=== PATIENT | female | born 1945 | race Caucasian/White ===

== ENCOUNTER 2017-12-17 04:30 | Emergency (ER) | payer MEDICARE, BC ==
[2017-12-17 05:28] LABS: Basophils # (A) 0.1 k/uL (0-0.2); Basophils % (A) 1 %; Eosinophils # (A) 0.2 k/uL (0-0.7); Eosinophils % (A) 2 %; HCT 39.7 % (34.0-46.0); Lymphocytes # (A) 2.5 k/uL (1.0-4.8); Lymphocytes % (A) 27 %; MCH 28.4 pg (25.0-35.0); MCHC 32.8 g/dL (31.0-37.0); MCV 86.4 fL (80.0-100.0); Mean Platelet Volume 7.2; Monocytes # (A) 0.7 k/uL (0-1.0); Monocytes % (A) 7 %; Neutrophils # (A) 5.7 k/uL (1.3-7.7); Neutrophils % (A) 62 %; Platelet Count 364 k/uL (150-450); RBC 4.59 m/uL (3.80-5.40); RDW 13.9 % (11.5-15.5); WBC 9.2 k/uL (3.8-10.6)
[2017-12-17 05:32] LABS: Appearance,Urine Clear (Clear); Bilirubin,Urine Negative (Negative); Blood,Urine Negative (Negative); Color,Urine Light Yellow; Glucose,Urine (UA) Negative (Negative); Ketones,Urine Negative (Negative); Leukocyte Esterase,Urine Small (Negative); Mucus,Urine Rare /hpf; Nitrite,Urine Negative (Negative); PH, Urine 5.5 (5.0-8.0); Protein,Urine Negative (Negative); Specific Gravity,Urine 1.006 (1.001-1.035); Squamous Epithelial Cell,Urine <1 /hpf (0-4); Urobilinogen,Urine <2.0 mg/dL (<2.0); WBC,Urine 2 /hpf (0-5)
[2017-12-17 05:41] LABS: Albumin 4.6 g/dL (3.5-5.0); Calcium 10.6 mg/dL (8.4-10.2); Potassium 4.3 mmol/L (3.5-5.1); Total Bilirubin 0.3 mg/dL (0.2-1.3); Total Protein 6.9 g/dL (6.3-8.2)
--- NOTE | 2017-12-17 05:53 | ED ---
Abdominal Pain HPI - General Source: patient Mode of arrival: ambulatory Limitations: no limitations - History of Present Illness MD Complaint: abdominal pain Onset/Timin -: days(s) Location: LLQ, L flank Radiation: none Migration to: no migration Severity: moderate Quality: stabbing Consistency: constant Improves With: nothing Worsens With: nothing Associated Symptoms: nausea, other (Urinary frequency) <Edd Mills - Last Filed: 12/17/17 05:45> <Abdi Kennedy - Last Filed: 12/17/17 08:27> - General Chief Complaint: Abdominal Pain Stated Complaint: Abd pain Time Seen by Provider: 12/17/17 05:13 - Related Data Allergies Allergy/AdvReac Type Severity Reaction Status Date / Time No Known Allergies Allergy Verified 12/17/17 07:55 Review of Systems ROS Other: All systems not noted in ROS Statement are negative. Constitutional: Denies: fever, chills Respiratory: Denies: cough, dyspnea Cardiovascular: Denies: chest pain Gastrointestinal: Reports: abdominal pain, nausea. Denies: vomiting, diarrhea, constipation Genitourinary: Reports: frequency. Denies: dysuria, hematuria Musculoskeletal: Denies: back pain Skin: Denies: rash Neurological: Denies: headache <Edd Mills - Last Filed: 12/17/17 05:45> ROS Other: All systems not noted in ROS Statement are negative. <Abdi Kennedy - Last Filed: 12/17/17 08:27> ROS Statement: Those systems with pertinent positive or pertinent negative responses have been documented in the HPI. Past Medical History Past Medical History: Diabetes Mellitus, Hyperlipidemia, Hypertension, Thyroid Disorder History of Any Multi-Drug Resistant Organisms: None Reported Past Surgical History: Appendectomy, Bowel Resection Past Psychological History: No Psychological Hx Reported Smoking Status: Never smoker Past Alcohol Use History: None Reported Past Drug Use History: None Reported <Edd Mills - Last Filed: 12/17/17 05:45> General Exam Limitations: no limitations General appearance: alert, in no apparent distress Head exam: Present: atraumatic, normocephalic Eye exam: Present: normal appearance. Absent: scleral icterus, conjunctival injection Respiratory exam: Present: normal lung sounds bilaterally. Absent: respiratory distress, wheezes, rales, rhonchi, stridor Cardiovascular Exam: Present: regular rate, normal rhythm, normal heart sounds. Absent: systolic murmur, diastolic murmur, rubs, gallop GI/Abdominal exam: Present: soft, tenderness. Absent: distended, guarding, rebound, rigid Extremities exam: Present: normal inspection, normal capillary refill. Absent: pedal edema, calf tenderness Back exam: Present: normal inspection. Absent: CVA tenderness (R), CVA tenderness (L) Neurological exam: Present: alert Skin exam: Present: warm, dry, intact, normal color <Edd Mills - Last Filed: 12/17/17 05:45> General appearance: alert, in no apparent distress Head exam: Present: atraumatic, normocephalic, normal inspection Eye exam: Present: normal appearance, PERRL, EOMI. Absent: scleral icterus, conjunctival injection, periorbital swelling ENT exam: Present: normal exam, mucous membranes moist Neck exam: Present: normal inspection. Absent: tenderness, meningismus, lymphadenopathy Respiratory exam: Present: normal lung sounds bilaterally. Absent: respiratory distress, wheezes, rales, rhonchi, stridor Cardiovascular Exam: Present: regular rate, normal rhythm, normal heart sounds. Absent: systolic murmur, diastolic murmur, rubs, gallop, clicks GI/Abdominal exam: Present: soft, normal bowel sounds. Absent: distended, tenderness, guarding, rebound, rigid Extremities exam: Present: normal inspection, full ROM, normal capillary refill. Absent: tenderness, pedal edema, joint swelling, calf tenderness Back exam: Present: normal inspection Neurological exam: Present: alert, oriented X3, CN II-XII intact Psychiatric exam: Present: normal affect, normal mood Skin exam: Present: warm, dry, intact, normal color. Absent: rash <Abdi Kennedy - Last Filed: 12/17/17 08:27> Course <Edd Mills - Last Filed: 12/17/17 05:45> <Abdi Kennedy - Last Filed: 12/17/17 08:27> Vital Signs 12/17/17 12/17/17 04:39 06:46 Temperature 97.2 F L 98.4 F Pulse Rate 78 74 Respiratory 20 18 Rate Blood Pressure 198/100 166/71 O2 Sat by Pulse 100 99 Oximetry - Reevaluation(s) Reevaluation #1: 12/17/17 08:26 Patient has mild improvement in pain (Abdi Kennedy) Medical Decision Making - Lab Data Result diagrams: 12/17/17 05:03 12/17/17 05:03 <Edd Mills - Last Filed: 12/17/17 05:45> - Lab Data Result diagrams: 12/17/17 05:03 12/17/17 05:03 - Radiology Data Radiology results: report reviewed (CT abd pelvis negative for acute disease), image reviewed <Abdi Kennedy - Last Filed: 12/17/17 08:27> - Medical Decision Making 72 female the ER with flank pain, left-sided groin pain. Seen in urgent care for similar with no results, patient with negative urine negative lab CT is negative, patient will be discharged home (Abdi Kennedy) - Lab Data Lab Results 12/17/17 12/17/17 12/17/17 Range/Units 05:03 05:03 05:03 WBC 9.2 (3.8-10.6) k/uL RBC 4.59 (3.80-5.40) m/uL Hgb 13.0 (11.4-16.0) gm/dL Hct 39.7 (34.0-46.0) % MCV 86.4 (80.0-100.0) fL MCH 28.4 (25.0-35.0) pg MCHC 32.8 (31.0-37.0) g/dL RDW 13.9 (11.5-15.5) % Plt Count 364 (150-450) k/uL Neutrophils % 62 % Lymphocytes % 27 % Monocytes % 7 % Eosinophils % 2 % Basophils % 1 % Neutrophils # 5.7 (1.3-7.7) k/uL Lymphocytes # 2.5 (1.0-4.8) k/uL Monocytes # 0.7 (0-1.0) k/uL Eosinophils # 0.2 (0-0.7) k/uL Basophils # 0.1 (0-0.2) k/uL Sodium 143 (137-145) mmol/L Potassium 4.3 (3.5-5.1) mmol/L Chloride 103 (98-107) mmol/L Carbon Dioxide 23 (22-30) mmol/L Anion Gap 17 mmol/L BUN 20 H (7-17) mg/dL Creatinine 0.90 (0.52-1.04) mg/dL Est GFR (CKD-EPI)AfAm 74 (>60 ml/min/1.73 sqM) Est GFR (CKD-EPI)NonAf 64 (>60 ml/min/1.73 sqM) Glucose 95 (74-99) mg/dL Calcium 10.6 H (8.4-10.2) mg/dL Total Bilirubin 0.3 (0.2-1.3) mg/dL AST 27 (14-36) U/L ALT 35 (9-52) U/L Alkaline Phosphatase 76 (38-126) U/L Total Protein 6.9 (6.3-8.2) g/dL Albumin 4.6 (3.5-5.0) g/dL Amylase 64 (30-110) U/L Lipase 173 (23-300) U/L Urine Color Light Yellow Urine Appearance Clear (Clear) Urine pH 5.5 (5.0-8.0) Ur Specific [place] 1.006 (1.001-1.035) Urine Protein Negative (Negative) Urine Glucose (UA) Negative (Negative) Urine Ketones Negative (Negative) Urine Blood Negative (Negative) Urine Nitrite Negative (Negative) Urine Bilirubin Negative (Negative) Urine Urobilinogen <2.0 (<2.0) mg/dL Ur Leukocyte Esterase Small H (Negative) Urine WBC 2 (0-5) /hpf Ur Squamous Epith Cells <1 (0-4) /hpf Urine Mucus Rare H (None) /hpf Disposition <Edd Mills - Last Filed: 12/17/17 05:45> Is patient prescribed a controlled substance at d/c from ED?: No <Abdi Kennedy - Last Filed: 12/17/17 08:27> Clinical Impression: Abdominal pain Disposition: HOME SELF-CARE Condition: Good Instructions: Abdominal Pain (ED) Referrals: Nonstaff,Physician [Primary Care Provider] - 1-2 days
--- NOTE | 2017-12-17 06:22 | XR ---
EXAM: XR Abdomen, 1 View. CLINICAL HISTORY: Reason: abdominal pain TECHNIQUE: Frontal supine view of the abdomen/pelvis. COMPARISON: No relevant prior studies available. FINDINGS: Gastrointestinal tract: Nonobstructive bowel gas pattern. Bones: Unremarkable. No acute fracture. IMPRESSION: Normal abdomen and pelvis.
--- NOTE | 2017-12-17 07:57 | CT ---
EXAM: CT Abdomen and Pelvis Without Intravenous Contrast. CLINICAL HISTORY: Abdominal pain. TECHNIQUE: Axial computed tomography images of the abdomen and pelvis without intravenous contrast. CTDI is 21.3 mGy and DLP is 1035 mGy-cm. This CT exam was performed using one or more of the following dose reduction techniques: automated exposure control, adjustment of the mA and/or kV according to patient size, and/or use of iterative reconstruction technique. COMPARISON: No relevant prior studies available. FINDINGS: Lower thorax: No acute findings. ABDOMEN: Liver: Diffuse hepatic steatosis. Within the limitations of a nonenhanced exam, no focal hepatic lesions are identified. Gallbladder and bile ducts: Unremarkable. No calcified stones. No ductal dilation. Pancreas: Unremarkable. No ductal dilation. Spleen: Unremarkable. No splenomegaly. Adrenals: Unremarkable. No mass. Kidneys and ureters: Unremarkable. No obstructing stones. No hydronephrosis. PELVIS: Bladder: Unremarkable. No stones. Reproductive: Status post hysterectomy. No adnexal lesions.. Appendix: No findings to suggest acute appendicitis. ABDOMEN + PELVIS: Stomach and bowel: No bowel obstruction. No definite bowel wall thickening, though evaluation is limited by absence of enteric contrast. Post surgical changes seen near the rectosigmoid junction. No infiltrative changes regional to the anastomotic suture sites. Peritoneum: Unremarkable. No significant fluid collection. No free air. Lymph nodes: Unremarkable. No enlarged lymph nodes. Vasculature: Unremarkable. No aortic aneurysm. Bones: No acute fracture. IMPRESSION: No acute inflammatory or obstructive process seen within the abdomen or pelvis. Hepatic steatosis. Postsurgical changes and pelvis, as above.
[2017-12-17 08:31] VITALS: BP 131/60; PULSE 79; RESP 17
[2017-12-17 08:57] VITALS: TEMP 97.3
== END 2017-12-17 08:56 | disposition home or self-care (01) ==
LOC: EC 04:30
DX: R10.32 Left lower quadrant pain (principal); R11.0 Nausea; R35.0 Frequency of micturition
CPT/HCPCS: 36415; 74018; 74176; 80053; 81001; 82150; 83690; 85025; 99284

== ENCOUNTER → 2018-09-12 | Outpatient (CLI) | payer MEDICARE, BC ==
[2018-09-12 09:29] LABS: Basophils % (A) 1 %; Eosinophils # (A) 0.1 k/uL (0-0.7); Eosinophils % (A) 1 %; HCT 40.1 % (34.0-46.0); HGB 12.8 gm/dL (11.4-16.0); Lymphocytes # (A) 2.3 k/uL (1.0-4.8); Lymphocytes % (A) 30 %; MCH 28.9 pg (25.0-35.0); MCHC 31.8 g/dL (31.0-37.0); MCV 90.8 fL (80.0-100.0); Mean Platelet Volume 7.3; Monocytes # (A) 0.5 k/uL (0-1.0); Monocytes % (A) 6 %; Neutrophils # (A) 4.5 k/uL (1.3-7.7); Neutrophils % (A) 60 %; Platelet Count 271 k/uL (150-450); RBC 4.42 m/uL (3.80-5.40); RDW 13.4 % (11.5-15.5); WBC 7.5 k/uL (3.8-10.6)
[2018-09-12 17:00] LABS: Albumin 4.9 g/dL (3.80-4.90); Albumin/Globulin Ratio 2.45 (1.60-3.17); Anion Gap 8.4 mmol/L (4.00-12.00); Calcium 10.9 mg/dL (8.7-10.3); Carbon Dioxide 25.6 mmol/L (21.6-31.8); LDL Cholesterol,Calculated 58.6 mg/dL (0.0-131.0); Magnesium 2.2 mg/dL (1.5-2.4); Potassium 5.1 mmol/L (3.5-5.5); Total Bilirubin 0.4 mg/dL (0.3-1.2); Total Protein 6.9 g/dL (6.2-8.2); VLDL Calculation 27.4 mg/dL (5.00-40.00)
[2018-09-12 17:42] LABS: Hemoglobin A1C 7.9 % (4.0-6.0)
== END | disposition home or self-care (01) ==
LOC: LABWHC1 08:31
PROVIDERS: ATTEND Physician Assistant
DX: E78.5 Hyperlipidemia, unspecified (principal); E11.9 Type 2 diabetes mellitus without complications; E03.9 Hypothyroidism, unspecified; I10 Essential (primary) hypertension; E83.42 Hypomagnesemia
CPT/HCPCS: 36415; 80053; 80061; 82043; 82570; 83036; 83735; 84443; 85025

== ENCOUNTER → 2018-10-02 | Outpatient (CLI) | payer MEDICARE, BC ==
--- NOTE | 2018-10-02 09:45 | BD ---
EXAMINATION TYPE: Axial Bone Density DATE OF EXAM: 10/02/2018 COMPARISON: NONE CLINICAL HISTORY: 73 YR OLD FEMALE....ICD-10 CODE: M89.9 DISORDER OF BONE Height: 63.3 Weight: 193 FRAX RISK QUESTIONS: History of Fracture in Adulthood: YES Secondary Osteoporosis: YES 3. Menopause before 45: YES AT AGE 21 RISK FACTORS HISTORY OF: Hip Fracture (Right/Left): RT KNEE AT 14 YRS OLD, LOWER TIB FIB AT 25 YRS OLD History of Wrist Fracture: RT WRIST, > AGE 49 Postmenopausal woman: AT AGE 21 TOTAL HYST Take estrogen and/or progesterone medications: IN THE PAST ONLY FOR ABOUT 10 YRS Lost more than 2 inches in height since high school: YES MEDICATIONS: Prednisone or other steroids: PREDNISONE ON AND OFF Thyroid Medications: YES SYNTHROID, FOR ABOUT 10 YRS Additional Medications: BP MEDS, XANAX, REFLUX MEDS, STATIN FOR CHOLESTEROL, ORAL DIABETIC MEDS, VIT D, MULTIVITAMIN Additional History: HYPERTENSION, ANXIETY, DIABETIC EXAM MEASUREMENTS: Bone mineral densitometry was performed using the Global Velocity System. Bone mineral density as measured about the Lumbar spine is: ----- L1-L4(G/cm2): 1.141 T Score Values are as follows: ----- L1: -0.8 ----- L2: -1.4 ----- L3: 0.0 ----- L4: 0.6 ----- L1-L4: -0.3 Bone mineral density FIRST BONE DENSITY AT [facility] Bone mineral density about the R hip (g/cm2): 0.812 Bone mineral density about the L hip (g/cm2): 0.985 T Score values are as follows: -----R Neck: -2.0 -----L Neck: -1.1 -----R Total: -1.6 -----L Total: -0.2 Bone mineral density FIRST BONE DENSITY AT [facility] FRAX%s: THERE IS A 18.6% CHANCE FOR A MAJOR OSTEOPOROTIC FX AND A 4.2% FOR HIP .....PROBABILITY OF FX IN 10 YRS TIME IMPRESSION: Osteopenia (T Score between -2.5 and -1) at the femoral neck level in both hips. There is slightly increased risk of fracture and the patient may be considered for treatment. Re-Screen 2-5 years. NOTE: T-SCORE=SD OF THE YOUNG ADULT MEAN.
--- NOTE | 2018-10-07 10:09 | MM ---
Reason for exam: screening (asymptomatic). Last mammogram was performed 2 years and 3 months ago. History: Patient is postmenopausal and is nulliparous. Benign excisional biopsy of the left breast, 1983. Took estrogen for 10 years beginning at age 24. Physical Findings: A clinical breast exam by your physician is recommended on an annual basis and results should be correlated with mammographic findings. MG 3D Screening Mammo W/Cad Bilateral CC and MLO view(s) were taken. Prior study comparison: June 18, 2016, mammogram, performed at [facility]. March 02, 2014, mammogram, performed at [facility]. There are scattered fibroglandular densities. There are benign appearing round linear calcifications bilaterally, greater in the right breast. There is no discrete abnormality. ASSESSMENT: Benign, BI-RAD 2 RECOMMENDATION: Routine screening mammogram of both breasts in 1 year.
== END | disposition home or self-care (01) ==
LOC: RADMAMWWP 08:06
PROVIDERS: ATTEND Pediatrics
DX: Z12.31 Encounter for screening mammogram for malignant neoplasm of breast (principal); M85.851 Other specified disorders of bone density and structure, right thigh; M85.852 Other specified disorders of bone density and structure, left thigh
CPT/HCPCS: 77063; 77067; 77080

== ENCOUNTER → 2019-03-19 | Outpatient (CLI) | payer MEDICARE, BC ==
--- NOTE | 2019-03-19 10:43 | XR ---
EXAMINATION TYPE: XR lumbosacral spine min 4V DATE OF EXAM: 03/19/2019 CLINICAL HISTORY: Low back pain. TECHNIQUE: Frontal, lateral, and oblique images of the lumbar spine are obtained. COMPARISON: None FINDINGS: There are 5 lumbar type vertebral bodies identified. Vertebral body heights and alignment are preserved. Minimal retrolisthesis of L4 in relation to L3. Disc space narrowing and marginal oste ophytes are seen at L4-5 and L5-S1. Multilevel facet arthropathy. Pedicles and sacroiliac joints appe ar intact. IMPRESSION: Lumbar spondylosis most severe at L4-5 and L5-S1.
== END | disposition home or self-care (01) ==
LOC: RADXRMAIN 08:35
PROVIDERS: ATTEND Pediatrics
DX: M47.817 Spondylosis without myelopathy or radiculopathy, lumbosacral region (principal)
CPT/HCPCS: 72110

== ENCOUNTER → 2019-09-08 | Outpatient (CLI) | payer MEDICARE, BC ==
[2019-09-08 11:59] LABS: Basophils # (A) 0.1 k/uL (0-0.2); Basophils % (A) 1 %; Eosinophils # (A) 0.2 k/uL (0-0.7); Eosinophils % (A) 3 %; HCT 41.3 % (34.0-46.0); Lymphocytes # (A) 2.5 k/uL (1.0-4.8); Lymphocytes % (A) 35 %; MCHC 31.5 g/dL (31.0-37.0); MCV 92.2 fL (80.0-100.0); Mean Platelet Volume 7.7; Monocytes # (A) 0.4 k/uL (0-1.0); Monocytes % (A) 6 %; Neutrophils # (A) 3.7 k/uL (1.3-7.7); Neutrophils % (A) 52 %; Platelet Count 288 k/uL (150-450); RBC 4.48 m/uL (3.80-5.40); RDW 13.1 % (11.5-15.5); WBC 7.1 k/uL (3.8-10.6)
[2019-09-08 18:38] LABS: African American GFR (CKD) 56.9 (60.0-200.0); Albumin 4.9 g/dL (3.80-4.90); Albumin/Globulin Ratio 2.88 (1.60-3.17); Anion Gap 10.3 mmol/L (4.00-12.00); BUN/Creat Ratio 17.27 Ratio (12.00-20.00); Calcium 10.5 mg/dL (8.7-10.3); Carbon Dioxide 25.7 mmol/L (21.6-31.8); Chol/HDL Ratio 2.44; Globulin 1.7 g/dL (1.6-3.3); LDL Cholesterol,Calculated 44.6 mg/dL (0.0-131.0); Non-African American GFR(CKD) 49.1 (60.0-200.0); Potassium 4.6 mmol/L (3.5-5.5); Total Bilirubin 0.4 mg/dL (0.3-1.2); Total Protein 6.6 g/dL (6.2-8.2); VLDL Calculation 40.4 mg/dL (5.00-40.00)
[2019-09-08 19:21] LABS: Microalbumin Creatinine Ratio <30 mg/g Creat (0-30); Urine Creatinine 16.6 mg/dL
[2019-09-08 21:09] LABS: Hemoglobin A1C 8.9 % (4.0-6.0)
== END | disposition home or self-care (01) ==
LOC: LABWHC1 11:14
PROVIDERS: ATTEND Physician Assistant
DX: I10 Essential (primary) hypertension (principal); E03.9 Hypothyroidism, unspecified; E78.5 Hyperlipidemia, unspecified; E11.9 Type 2 diabetes mellitus without complications
CPT/HCPCS: 36415; 80053; 80061; 82043; 82570; 83036; 84439; 84443; 85025

== ENCOUNTER 2019-10-08 05:11 | Emergency (ER) | payer MEDICARE, BC ==
[2019-10-08 05:19] VITALS: TEMP 98.2
[2019-10-08 05:47] LABS: Basophils % (A) 0 %; Eosinophils # (A) 0.1 k/uL (0-0.7); Eosinophils % (A) 1 %; HCT 38.9 % (34.0-46.0); HGB 12.7 gm/dL (11.4-16.0); Lymphocytes # (A) 1.7 k/uL (1.0-4.8); Lymphocytes % (A) 11 %; MCH 29.4 pg (25.0-35.0); MCHC 32.7 g/dL (31.0-37.0); MCV 89.9 fL (80.0-100.0); Mean Platelet Volume 8.1; Monocytes # (A) 1.1 k/uL (0-1.0); Monocytes % (A) 7 %; Neutrophils # (A) 12.3 k/uL (1.3-7.7); Neutrophils % (A) 79 %; Platelet Count 296 k/uL (150-450); RBC 4.33 m/uL (3.80-5.40); RDW 12.9 % (11.5-15.5); WBC 15.6 k/uL (3.8-10.6)
--- NOTE | 2019-10-08 05:51 | XR ---
EXAMINATION TYPE: XR chest 2V DATE OF EXAM: 10/08/2019 COMPARISON: NONE HISTORY: Chest pain TECHNIQUE: FINDINGS: Heart is normal. Lungs are clear of infiltrate. There are no hilar masses. There is no pleu ral effusion. Bony thorax is intact. IMPRESSION: No active cardiopulmonary disease. Normal heart.
[2019-10-08 05:58] LABS: Albumin 4.3 g/dL (3.5-5.0); Calcium 10.1 mg/dL (8.4-10.2); Potassium 4.5 mmol/L (3.5-5.1); Total Bilirubin 0.4 mg/dL (0.2-1.3)
[2019-10-08 06:03] LABS: D-Dimer 0.35 mg/L FEU (<0.60); INR 0.9 (<1.2); Partial Thromboplastin Time 24.5 sec (22.0-30.0); Prothrombin Time 9.8 sec (9.0-12.0)
[2019-10-08] MEDS ORDERED: KETOROLAC 30 MG/ML 1 ML VIAL IVP STA (06:48)
--- NOTE | 2019-10-08 06:48 | ED ---
General Adult HPI - General Chief complaint: Shortness of Breath Stated complaint: Side pain when breathing Time Seen by Provider: 10/08/19 05:23 Source: patient Mode of arrival: ambulatory Limitations: no limitations - History of Present Illness Initial comments: Rosey is a pleasant 74-year-old female presents the emergency department today for evaluation of sharp pain in the right side of her chest. Patient reports that last week she began feeling Of Unwell Having Some Pain in Her Right Ear and Tender Lymphadenopathy on the Side of Her Neck. Patient May Not See Her Primary Care Physician for 3:00 Today However She's Also Developed a Mild Nonproductive Cough over the past 2 Days Has a Sharp Pain in Her Right Chest. Pain Is Worse with Deep Inspiration or Coughing. Pain Somewhat Reproducible with Palpation. Pain Is Not Associated with Any Shortness Breath, Palpitations or Lightheadedness. She Has No History of Pulmonary Disease, DVT or PE. - Related Data Home Medications Medication Instructions Recorded Confirmed Biotin 5 mg PO DAILY 12/17/17 12/17/17 Cholecalciferol [Vitamin D3] 2,000 unit PO DAILY 12/17/17 12/17/17 Cyanocobalamin (Vitamin B-12) 1,000 mcg PO DAILY 12/17/17 12/17/17 [Vitamin B-12] Esomeprazole Magnesium 40 mg PO DAILY 12/17/17 12/17/17 Ezetimibe [Zetia] 10 mg PO DAILY 12/17/17 12/17/17 Garlic 2 tab PO DAILY 12/17/17 12/17/17 Glimepiride [Amaryl] 4 mg PO [id number]-[id number] 12/17/17 12/17/17 Levothyroxine Sodium 100 mcg PO DAILY 12/17/17 12/17/17 Lisinopril [Zestril] 20 mg PO HS 12/17/17 12/17/17 Magnesium(Unknown) 1 tab PO DAILY 12/17/17 12/17/17 Meloxicam [Mobic] 15 mg PO HS 12/17/17 12/17/17 Multivitamins, Thera [Multivitamin 1 tab PO DAILY 12/17/17 12/17/17 (formulary)] Rosuvastatin Calcium [Crestor] 20 mg PO DAILY 12/17/17 12/17/17 Vitamin E (Dl,Tocopheryl Acet) 400 unit PO DAILY 12/17/17 12/17/17 [Vitamin E] Vits A,C,E/Lutein/Minerals 1 tab PO DAILY 12/17/17 12/17/17 [Ocuvite with Lutein Tablet] amLODIPine [Norvasc] 5 mg PO HS 12/17/17 12/17/17 metFORMIN HCL [Glucophage] 1,000 mg PO BID 12/17/17 12/17/17 traMADol HCL [Ultram] 50 mg PO Q8H PRN 12/17/17 12/17/17 Previous Rx's Medication Instructions Recorded Amoxicillin 500 mg PO BID 10 Days #20 capsule 10/08/19 Allergies Allergy/AdvReac Type Severity Reaction Status Date / Time ragweed pollen Allergy Mild Unknown Verified 10/08/19 05:20 Review of Systems ROS Statement: Those systems with pertinent positive or pertinent negative responses have been documented in the HPI. ROS Other: All systems not noted in ROS Statement are negative. Past Medical History Past Medical History: Diabetes Mellitus, Hyperlipidemia, Hypertension, Thyroid Disorder History of Any Multi-Drug Resistant Organisms: None Reported Past Surgical History: Appendectomy, Bowel Resection Additional Past Surgical History / Comment(s): bowel tumor removed. Past Psychological History: No Psychological Hx Reported Smoking Status: Never smoker Past Alcohol Use History: None Reported Past Drug Use History: None Reported General Exam - General Exam Comments Initial Comments: Physical Exam GENERAL: Patient is well-developed and well-nourished. Patient is nontoxic and well- hydrated and is in no distress. HENT: Normocephalic, Atraumatic. Right-sided otitis media EYES: PERRL, EOMI PULMONARY: Unlabored respirations. No audible rales rhonchi or wheezing was noted. CARDIOVASCULAR: There is a regular rate and rhythm without any murmurs gallops or rubs. ABDOMEN: Soft and nontender with normal bowel sounds. SKIN: Skin is clear with no lesions or rashes and otherwise unremarkable. : Deferred NEUROLOGIC: Patient is alert and oriented x3. Moving all extremities spontaneously MUSCULOSKELETAL: Normal extremities with adequate strength and full range of motion. No lower extremity swelling or edema. No calf tenderness. PSYCHIATRIC: Normal psychiatric evaluation. Limitations: no limitations Course Vital Signs 10/08/19 05:14 Temperature 98.2 F Pulse Rate 107 H Respiratory 20 Rate Blood Pressure 150/77 O2 Sat by Pulse 96 Oximetry EKG Findings - EKG Comments: EKG Findings:: EKG was obtained due to complaint of right-sided chest pain, EKG was obtained at 5:30 AM, rate is 95 rhythm is sinus there is normal axis, normal intervals, MD 1:30, QRS 90, QTc is [address] elevations noted have T-wave inversions in V2-V5 Medical Decision Making - Medical Decision Making The patient was seen and evaluated history was obtained from patient History and physical exam are concerning for right-sided otitis media, patient likely has a viral syndrome, she has reproducible right-sided chest pain which I believe is likely pleuritic in nature Labs chest x-ray and EKG were obtained, patient's mildly leukocytosis, and troponin and d-dimer are both negative Chest x-ray unremarkable Results were discussed patient was advised that I suspect she has a pleuritic like chest pain as well as otitis media. We'll treat with oral antibiotics, anti-inflammatory. Patient with follow-up with her primary care physician at 3 PM today as scheduled. - Lab Data Result diagrams: 10/08/19 05:37 10/08/19 05:37 Lab Results 10/08/19 10/08/19 10/08/19 Range/Units 05:37 05:37 05:37 WBC 15.6 H (3.8-10.6) k/uL RBC 4.33 (3.80-5.40) m/uL Hgb 12.7 (11.4-16.0) gm/dL Hct 38.9 (34.0-46.0) % MCV 89.9 (80.0-100.0) fL MCH 29.4 (25.0-35.0) pg MCHC 32.7 (31.0-37.0) g/dL RDW 12.9 (11.5-15.5) % Plt Count 296 (150-450) k/uL Neutrophils % 79 % Lymphocytes % 11 % Monocytes % 7 % Eosinophils % 1 % Basophils % 0 % Neutrophils # 12.3 H (1.3-7.7) k/uL Lymphocytes # 1.7 (1.0-4.8) k/uL Monocytes # 1.1 H (0-1.0) k/uL Eosinophils # 0.1 (0-0.7) k/uL Basophils # 0.0 (0-0.2) k/uL PT 9.8 (9.0-12.0) sec INR 0.9 (<1.2) APTT 24.5 (22.0-30.0) sec D-Dimer 0.35 (<0.60) mg/L FEU Sodium 135 L (137-145) mmol/L Potassium 4.5 (3.5-5.1) mmol/L Chloride 106 (98-107) mmol/L Carbon Dioxide 17 L (22-30) mmol/L Anion Gap 12 mmol/L BUN 22 H (7-17) mg/dL Creatinine 1.14 H (0.52-1.04) mg/dL Est GFR (CKD-EPI)AfAm 55 (>60 ml/min/1.73 sqM) Est GFR (CKD-EPI)NonAf 47 (>60 ml/min/1.73 sqM) Glucose 217 H (74-99) mg/dL Calcium 10.1 (8.4-10.2) mg/dL Magnesium 2.0 (1.6-2.3) mg/dL Total Bilirubin 0.4 (0.2-1.3) mg/dL AST 27 (14-36) U/L ALT 25 (4-34) U/L Alkaline Phosphatase 88 (38-126) U/L Troponin I (0.000-0.034) ng/mL NT-Pro-B Natriuret Pep pg/mL Total Protein 7.0 (6.3-8.2) g/dL Albumin 4.3 (3.5-5.0) g/dL 10/08/19 10/08/19 Range/Units 05:37 05:37 WBC (3.8-10.6) k/uL RBC (3.80-5.40) m/uL Hgb (11.4-16.0) gm/dL Hct (34.0-46.0) % MCV (80.0-100.0) fL MCH (25.0-35.0) pg MCHC (31.0-37.0) g/dL RDW (11.5-15.5) % Plt Count (150-450) k/uL Neutrophils % % Lymphocytes % % Monocytes % % Eosinophils % % Basophils % % Neutrophils # (1.3-7.7) k/uL Lymphocytes # (1.0-4.8) k/uL Monocytes # (0-1.0) k/uL Eosinophils # (0-0.7) k/uL Basophils # (0-0.2) k/uL PT (9.0-12.0) sec INR (<1.2) APTT (22.0-30.0) sec D-Dimer (<0.60) mg/L FEU Sodium (137-145) mmol/L Potassium (3.5-5.1) mmol/L Chloride (98-107) mmol/L Carbon Dioxide (22-30) mmol/L Anion Gap mmol/L BUN (7-17) mg/dL Creatinine (0.52-1.04) mg/dL Est GFR (CKD-EPI)AfAm (>60 ml/min/1.73 sqM) Est GFR (CKD-EPI)NonAf (>60 ml/min/1.73 sqM) Glucose (74-99) mg/dL Calcium (8.4-10.2) mg/dL Magnesium (1.6-2.3) mg/dL Total Bilirubin (0.2-1.3) mg/dL AST (14-36) U/L ALT (4-34) U/L Alkaline Phosphatase (38-126) U/L Troponin I <0.012 (0.000-0.034) ng/mL NT-Pro-B Natriuret Pep 57 pg/mL Total Protein (6.3-8.2) g/dL Albumin (3.5-5.0) g/dL Disposition Clinical Impression: Viral syndrome, Right otitis media, Pleuritic chest pain Disposition: HOME SELF-CARE Condition: Stable Additional Instructions: You have an ear infection, take Amoxicillin 500mg orally 2x daily for 10 days Follow-up with her primary care physician later today as scheduled Return to the ER if he have any worsening pain in her chest, shortness of breath, fever or any new or concerning symptoms Prescriptions: Amoxicillin 500 mg PO BID 10 Days #20 capsule Is patient prescribed a controlled substance at d/c from ED?: No Referrals: Bulmaro Rose MD [Primary Care Provider] - 1-2 days
[2019-10-08 07:16] VITALS: BP 135/69; PULSE 87; RESP 18
== END 2019-10-08 08:01 | disposition home or self-care (01) ==
LOC: EC 05:11
DX: B34.9 Viral infection, unspecified (principal); H66.91 Otitis media, unspecified, right ear; R07.81 Pleurodynia; D72.829 Elevated white blood cell count, unspecified; E11.9 Type 2 diabetes mellitus without complications; E78.5 Hyperlipidemia, unspecified; I10 Essential (primary) hypertension; E07.9 Disorder of thyroid, unspecified; Z91.048 Other nonmedicinal substance allergy status; Z79.1 Long term (current) use of non-steroidal anti-inflammatories (NSAID); Z79.84 Long term (current) use of oral hypoglycemic drugs; Z79.890 Hormone replacement therapy; Z79.899 Other long term (current) drug therapy
CPT/HCPCS: 36415; 93005; 85379; 83880; 80053; 83735; 84484; 85025; 85610; 85730; 71046; 99285; 96374; J1885

== ENCOUNTER → 2019-10-08 | Outpatient (CLI) | payer MEDICARE, BC ==
--- NOTE | 2019-10-09 11:19 | MM ---
Reason for exam: screening (asymptomatic). Last mammogram was performed 1 year ago. History: Patient is postmenopausal and is nulliparous. Family history of breast cancer in cousin at age 86. Benign excisional biopsy of the left breast, 1983. Took estrogen for 10 years beginning at age 24. Physical Findings: A clinical breast exam by your physician is recommended on an annual basis and results should be correlated with mammographic findings. MG 3D Screening Mammo W/Cad Bilateral CC and MLO view(s) were taken. Prior study comparison: October 02, 2018, bilateral MG 3d screening mammo w/cad. June 18, 2016, mammogram, performed at [facility]. There are scattered fibroglandular densities. Benign appearing bilateral calcifications. No suspicious abnormality. No significant changes when compared with prior studies. ASSESSMENT: Benign, BI-RAD 2 RECOMMENDATION: Routine screening mammogram of both breasts in 1 year.
== END | disposition home or self-care (01) ==
LOC: RADMAMWWP 12:33
PROVIDERS: ATTEND Pediatrics
DX: Z12.31 Encounter for screening mammogram for malignant neoplasm of breast (principal)
CPT/HCPCS: 77063; 77067

== ENCOUNTER → 2019-10-17 | Outpatient (CLI) | payer MEDICARE, BC ==
--- NOTE | 2019-10-17 09:18 | XR ---
EXAMINATION TYPE: XR chest 2V DATE OF EXAM: 10/17/2019 COMPARISON: 10/08/2019 HISTORY: Cough and congestion TECHNIQUE: Frontal and lateral views of the chest are obtained. FINDINGS: There is a new right suprahilar masslike consolidation. No additional new focal consolidat ion seen. No pneumothorax or pleural effusion. Chronic interstitial prominence. Stable mildly enlarge d cardiac mediastinal silhouette. Mild multilevel degenerative change of the spine. IMPRESSION: New right superhilar masslike consolidation. Given this was not present on the recent ex am of 10/08/2019, unifocal pneumonia is of primary consideration.
== END | disposition home or self-care (01) ==
LOC: RADXRMAIN 08:36
PROVIDERS: ATTEND Physician Assistant
DX: R05 Cough (principal)
CPT/HCPCS: 71046

== ENCOUNTER → 2020-10-14 | Outpatient (CLI) | payer MEDICARE, BC ==
--- NOTE | 2020-10-14 14:04 | PE ---
EXAMINATION TYPE: PET CT fusion skull to thigh DATE OF EXAM: 10/14/2020 COMPARISON: Outside CT chest August 31, 2020. CT abdomen December 17, 2017. HISTORY: Solitary pulmonary nodule, abnormal CT. TECHNIQUE: Following the intravenous administration of 9.88 mCi of F-18 FDG, whole body images are p erformed from the skull base to the midthigh. Images are reviewed on the computer in the coronal, ax ial, and sagittal planes. Reconstructed rotating images are created on independent workstation and r eviewed on the computer. A localization and attenuation correction CT is performed in conjunction w ith the PET scan. Blood glucose level equals 160. SCAN: Initial Scan FINDINGS: SKULL BASE AND NECK: No areas of abnormal hypermetabolic uptake. CHEST, MEDIASTINUM, AND HILAR REGION: Calcifications in the right hilar region redemonstrated. There is focal masslike consolidation with bronchiectasis right infrahilar region near axial image 85. Ther e is less prominent peripheral extension posteriorly on current study. No hypermetabolic uptake is id entified at this level. No areas of abnormal hypermetabolic uptake throughout the thorax. ABDOMEN AND PELVIS: No suspicious hypermetabolic uptake. Nonspecific bowel uptake. Normal excretion. OSSEOUS STRUCTURES: No suspicious hypermetabolic uptake.1 OTHER CT: Liver is diffusely low dense consistent with diffuse fatty infiltration. Surgical changes s igmoid rectal colon on axial image 199 is present. Uterus surgically absent. IMPRESSION: No suspicious hypermetabolic uptake to suggest neoplasm. Suspect granulomatous disease ce ntered right hilar region causing chronic inflammation and/or scarring with postobstructive atelectat ic change. Consider CT follow-up in 6-12 months time to document stability.
== END | disposition home or self-care (01) ==
LOC: RADPETMAIN 11:10
PROVIDERS: ATTEND Internal Medicine Critical Care Medicine
DX: R91.8 Other nonspecific abnormal finding of lung field (principal)
CPT/HCPCS: 78815; A9552

== ENCOUNTER → 2021-06-09 | Outpatient (CLI) | payer MEDICARE, BC ==
--- NOTE | 2021-06-09 08:57 | XR ---
EXAMINATION TYPE: XR abdomen 2V DATE OF EXAM: 06/09/2021 COMPARISON: 12/17/2017 HISTORY: Hypercalcemia TECHNIQUE: One view abdominal series FINDINGS: The osseous structures are intact. The bowel gas pattern is nonspecific. Lung bases are clear. Hype rtrophic and degenerative changes spine. Calcifications in the upper abdomen likely relate to granulo ma. Arthropathy of the hips. Degenerative change of the spine. IMPRESSION: 1. Nonspecific abdomen. No diagnostic evidence of obstruction.
--- NOTE | 2021-06-09 15:14 | BD ---
EXAMINATION TYPE: Axial Bone Density DATE OF EXAM: 06/09/2021 COMPARISON: 10.02.2018 CLINICAL HISTORY: 76 YR OLD FEMALE.....ICD-10 CODE: E83.52 HYPERCALCEMIA Height: 64 Weight: 166 FRAX RISK QUESTIONS: History of Fracture in Adulthood: YES Secondary Osteoporosis: YES 1. Type 1 Diabetes: YES 3. Menopause before 45: YES RISK FACTORS HISTORY OF: HX OF FXS YOUNG ADULT History of Wrist Fracture: RT > 50 YRS OLD Postmenopausal woman: TOTAL HYST AT 21 YRS OLD Take estrogen and/or progesterone medications: IN PAST FOR ABOUT 10 YRS, NONE NOW Lost more than 2 inches in height since high school: YES Hyperparathyroidism: NO Adrenal Insufficiency: NO MEDICATIONS: Prednisone or other steroids: YES..ON AND OFF Thyroid Medications: YES, SYNTHROID FOR ABOUT 15 YRS Additional Medications: BP MEDS, XANAX, REFLUX MEDS, STATIN FOR CHOLESTEROL , DIABETIC MEDS, INSULIN, RENAL TROUBLE, GABAPENTIN, TRAMADOL Additional History: HYPERTENSION, ANXIETY, REFLUX, DIABETIC, RENAL , FIBROMYALGIA, OSTEOARTHRITIS, EXAM MEASUREMENTS: Bone mineral densitometry was performed using the [employer] Interactive System. Bone mineral density as measured about the Lumbar spine is: ----- L1-L4(G/cm2): 1.083 T Score Values are as follows: ----- L1: -1.2 ----- L2: -1.4 ----- L3: -0.3 ----- L4: -0.6 ----- L1-L4: -0.8 Bone mineral density has: Decreased -5.0% since study of: 10.02.2018 Bone mineral density about the R hip (g/cm2): 0.745 Bone mineral density about the L hip (g/cm2): 0.937 T Score values are as follows: -----R Neck: -2.4 -----L Neck: -1.2 -----R Total: -2.1 -----L Total: -0.6 Bone mineral density has: Decreased -6.5% since study of: 10.02.2018 FRAX%s: THERE IS A 25.0% CHANCE FOR A MAJOR OSTEOPOROTIC FX AND A 7.6% FOR HIP......PROBABILITY FO R FX IN 10 YRS TIME IMPRESSION: Osteopenia (T Score between -2.5 and -1). There is slightly increased risk of fracture and the patient may be considered for treatment. Re-Screen 2-5 years. NOTE: T-SCORE=SD OF THE YOUNG ADULT MEAN.
== END | disposition home or self-care (01) ==
LOC: RADBDWWP 08:03
PROVIDERS: ATTEND Pediatrics
DX: E83.52 Hypercalcemia (principal); M85.89 Other specified disorders of bone density and structure, multiple sites; Z78.0 Asymptomatic menopausal state; Z79.52 Long term (current) use of systemic steroids; Z79.899 Other long term (current) drug therapy; Z79.4 Long term (current) use of insulin
CPT/HCPCS: 74019; 77080

== ENCOUNTER → 2022-06-22 | Outpatient (CLI) | payer MEDICARE, BC | END | disposition home or self-care (01) | LOC: LABPAT 13:33 | PROVIDERS: ATTEND Orthopaedic Surgery | DX: Z01.812 Encounter for preprocedural laboratory examination (principal); Z22.322 Carrier or suspected carrier of Methicillin resistant Staphylococcus aureus; M17.11 Unilateral primary osteoarthritis, right knee | CPT/HCPCS: 87070 ==

== ENCOUNTER 2022-07-06 08:29 | Inpatient (IN) | payer BC, MEDICARE ==
[2022-07-06] MEDS ORDERED: KETOROLAC 15 MG/ML 1 ML VIAL IVP STA (08:32)
--- NOTE | 2022-07-06 09:04 | ED ---
General Adult HPI - General Stated complaint: fall - hip pain Time Seen by Provider: 07/06/22 08:29 Source: patient, EMS, RN notes reviewed, old records reviewed - History of Present Illness Initial comments: GENERAL: Patient is well-developed and well-nourished. Patient is nontoxic and well- hydrated and is in mild distress. ENT: Neck is soft and supple. No significant lymphadenopathy is noted. Oropharynx is clear. Moist mucous membranes. Neck has full range of motion without eliciting any pain. EYES: The sclera were anicteric and conjunctiva were pink and moist. Extraocular movements were intact and pupils were equal round and reactive to light. Eyelids were unremarkable. PULMONARY: Unlabored respirations. Good breath sounds bilaterally. No audible rales rhonchi or wheezing was noted. CARDIOVASCULAR: There is a regular rate and rhythm without any murmurs gallops or rubs. ABDOMEN: Soft and nontender with normal bowel sounds. SKIN: Skin is clear with no lesions or rashes and otherwise unremarkable. NEUROLOGIC: Patient is alert and oriented x3. Cranial nerves II through XII are grossly intact. Motor and sensory are also intact. Normal speech, volume and content. Symmetrical smile. MUSCULOSKELETAL: Patient has pain to the lateral right hip also any movement elicits significant pain. LYMPHATICS: No significant lymphadenopathy is noted PSYCHIATRIC: Normal psychiatric evaluation. - Related Data Home Medications Medication Instructions Recorded Confirmed Cholecalciferol [Vitamin D3] 2,000 unit PO DAILY 12/17/17 01/12/21 Cyanocobalamin (Vitamin B-12) 1,000 mcg PO DAILY 12/17/17 01/12/21 [Vitamin B-12] Esomeprazole Magnesium 40 mg PO DAILY 12/17/17 01/12/21 Ezetimibe [Zetia] 10 mg PO DAILY 12/17/17 01/12/21 Garlic 2 tab PO BID 12/17/17 01/12/21 Glimepiride [Amaryl] 4 mg PO -BRKFST 12/17/17 01/12/21 Levothyroxine Sodium 50 mcg PO DAILY 12/17/17 01/12/21 Vitamin E (Dl,Tocopheryl Acet) 400 unit PO DAILY 12/17/17 01/12/21 [Vitamin E] Vits A,C,E/Lutein/Minerals 1 tab PO DAILY 12/17/17 01/12/21 [Ocuvite with Lutein Tablet] amLODIPine [Norvasc] 5 mg PO HS 12/17/17 01/12/21 lisinopriL [Zestril] 20 mg PO HS 12/17/17 01/12/21 metFORMIN HCL [Glucophage] 1,000 mg PO DAILY 12/17/17 01/12/21 Ascorbic Acid [Vitamin C] 500 mg PO BID 01/06/21 01/12/21 Aspirin [Adult Low Dose Aspirin EC] 81 mg PO DAILY 01/06/21 01/12/21 Ferrous Sulfate [Iron (65 MG 325 mg PO BID 01/06/21 01/12/21 Elemental)] Glucosam/Chond/Hyalu/Cf Borate 1 tab PO DAILY PRN 01/06/21 01/12/21 [Move Free Joint Health Tablet] Insulin Glargine [Lantus] 10 units SQ HS 01/06/21 01/12/21 Semaglutide [Ozempic] 2 mg SQ WEEKLY 01/06/21 01/12/21 calcium polycarbophiL [Fibercon] 625 mg PO DAILY 01/06/21 01/12/21 sitaGLIPtin PHOSPHATE [Januvia] 100 mg PO DAILY 01/06/21 01/12/21 Allergies Allergy/AdvReac Type Severity Reaction Status Date / Time ragweed pollen Allergy Mild Unknown Verified 01/12/21 09:05 cat dander Allergy Unknown Verified 01/12/21 09:05 tree and shrub pollen Allergy Unknown Verified 01/12/21 09:05 Review of Systems ROS Statement: Those systems with pertinent positive or pertinent negative responses have been documented in the HPI. ROS Other: All systems not noted in ROS Statement are negative. Past Medical History Past Medical History: Blood Disorder, Diabetes Mellitus, Hyperlipidemia, Hypertension, Osteoarthritis (OA), Thyroid Disorder Additional Past Medical History / Comment(s): ANEMIA. History of Any Multi-Drug Resistant Organisms: None Reported Past Surgical History: Appendectomy, Bowel Resection, Hysterectomy Additional Past Surgical History / Comment(s): bowel tumor removed. Past Anesthesia/Blood Transfusion Reactions: No Reported Reaction Past Psychological History: No Psychological Hx Reported Smoking Status: Never smoker Past Alcohol Use History: None Reported Past Drug Use History: None Reported Course Vital Signs 07/06/22 08:32 Temperature 98.6 F Pulse Rate 79 Respiratory 18 Rate Blood Pressure 178/85 O2 Sat by Pulse 100 Oximetry Medical Decision Making - Medical Decision Making X-ray of the chest was interpreted by me shows no acute abnormality is chronic COPD is noted. X-ray of the hip and pelvis were interpreted by me. X-ray of the pelvis and hip show a impacted femoral neck fracture. I spoke with Dr. Flor and he agreed to admit the patient admitted the patient and wrote admitting orders. I consulted Dr. Trevizo for medical clearance I interpret EKG EKG shows sinus rhythm at 75 bpm MS interval 260 QRS is 91 QT interval 390 QTC is 418. Patient's EKG shows no ST segment elevation or depression. - Lab Data Result diagrams: 07/06/22 08:42 07/06/22 08:42 Lab Results 07/06/22 07/06/22 07/06/22 Range/Units 08:42 08:42 08:42 WBC 6.1 (3.8-10.6) k/uL RBC 3.95 (3.80-5.40) m/uL Hgb 12.1 (11.4-16.0) gm/dL Hct 36.3 (34.0-46.0) % MCV 91.8 (80.0-100.0) fL MCH 30.5 (25.0-35.0) pg MCHC 33.2 (31.0-37.0) g/dL RDW 13.0 (11.5-15.5) % Plt Count 339 (150-450) k/uL MPV 8.9 Neutrophils % 72 % Lymphocytes % 17 % Monocytes % 8 % Eosinophils % 1 % Basophils % 0 % Neutrophils # 4.4 (1.3-7.7) k/uL Lymphocytes # 1.0 (1.0-4.8) k/uL Monocytes # 0.5 (0-1.0) k/uL Eosinophils # 0.0 (0-0.7) k/uL Basophils # 0.0 (0-0.2) k/uL PT 9.8 (9.0-12.0) sec INR 0.9 (<1.2) APTT 23.9 (22.0-30.0) sec Sodium 135 L (137-145) mmol/L Potassium 4.2 (3.5-5.1) mmol/L Chloride 103 (98-107) mmol/L Carbon Dioxide 22 (22-30) mmol/L Anion Gap 10 mmol/L BUN 13 (7-17) mg/dL Creatinine 0.83 (0.52-1.04) mg/dL Est GFR (CKD-EPI)AfAm 79 (>60 ml/min/1.73 sqM) Est GFR (CKD-EPI)NonAf 68 (>60 ml/min/1.73 sqM) Glucose 170 H (74-99) mg/dL Calcium 8.9 (8.4-10.2) mg/dL Total Bilirubin 0.4 (0.2-1.3) mg/dL AST 29 (14-36) U/L ALT 31 (4-34) U/L Alkaline Phosphatase 84 (38-126) U/L Total Protein 6.2 L (6.3-8.2) g/dL Albumin 4.1 (3.5-5.0) g/dL Disposition Clinical Impression: Fall, Fracture of femoral neck, right Disposition: ADMITTED IP TO THIS HOSP Referrals: Bulmaro Rose MD [Primary Care Provider] - 1-2 days Time of Disposition: 09:26
[2022-07-06 09:06] LABS: INR 0.9 (<1.2); Partial Thromboplastin Time 23.9 sec (22.0-30.0); Prothrombin Time 9.8 sec (9.0-12.0)
[2022-07-06 09:07] LABS: Albumin 4.1 g/dL (3.5-5.0); Calcium 8.9 mg/dL (8.4-10.2); Potassium 4.2 mmol/L (3.5-5.1); Total Bilirubin 0.4 mg/dL (0.2-1.3); Total Protein 6.2 g/dL (6.3-8.2)
[2022-07-06 09:10] LABS: Basophils % (A) 0 %; Eosinophils % (A) 1 %; HCT 36.3 % (34.0-46.0); HGB 12.1 gm/dL (11.4-16.0); Lymphocytes % (A) 17 %; MCH 30.5 pg (25.0-35.0); MCHC 33.2 g/dL (31.0-37.0); MCV 91.8 fL (80.0-100.0); Mean Platelet Volume 8.9; Monocytes # (A) 0.5 k/uL (0-1.0); Monocytes % (A) 8 %; Neutrophils # (A) 4.4 k/uL (1.3-7.7); Neutrophils % (A) 72 %; Platelet Count 339 k/uL (150-450); RBC 3.95 m/uL (3.80-5.40); WBC 6.1 k/uL (3.8-10.6)
--- NOTE | 2022-07-06 09:17 | XR ---
EXAMINATION TYPE: XR chest 1V DATE OF EXAM: 07/06/2022 COMPARISON: 10/17/2019, 09/15/2020 HISTORY: 77-year-old female shortness of breath, difficulty in breathing TECHNIQUE: Single frontal view of the chest is obtained. FINDINGS: Heart upper limits of normal in size. Mild hyperinflation. Mild interstitial/vascular prominence with out consolidation or pleural effusion. IMPRESSION: Suspect underlying COPD. Given borderline heart size and interstitial/vascular prominenc e, correlate to exclude mild pulmonary vascular congestion.
--- NOTE | 2022-07-06 09:19 | XR ---
EXAMINATION TYPE: AP view pelvis and 2 views right hip DATE OF EXAM: 07/06/2022 COMPARISON: NONE HISTORY: 77-year-old female fall and pain FINDINGS: SI joints appear symmetric and intact as do the pubic symphysis. Mild marginal spurring at the left e ither os acetabuli or degenerative labral ossification superolateral margin of the left acetabulum. There is a right femoral neck fracture that is mildly impacted with a external rotation and mild prox imal migration. This appears to be a transverse transcervical femoral neck fracture. IMPRESSION: Mildly impacted transcervical femoral neck fracture right hip with mild proximal migration.
[2022-07-06] MEDS ORDERED: SODIUM CHLORIDE 0.9% 1,000 ML IV ONE (09:26)
--- NOTE | 2022-07-06 10:48 | P.HPOR ---
History of Present Illness H&P Date: 07/06/22 Chief Complaint: right hip pain Patient is a 77 -year-old female who presented to the emergency department [facility] this morning with right hip pain status post fall at home. X-ray of the right hip does demonstrate right hip femoral neck fracture. Patient was seen at bedside this morning in the emergency department lying semirecumbent position in bed. Patient says she was at home this morning and had cans of soup on her bed when they began to roll off bed, patient tried to catch the cans before they fell off and she slipped and fell landing on her right side. Patient says she immediately began to have pain in the right hip. Patient says she is unable to bear much weight if any on the right leg. Patient says she is not on any blood thinners. Patient says she's had a right knee arthroscopy in the past and was scheduled to have a right total knee art hroplasty performed in August by Dr. Gaffney. Patient denies any other areas of pain. Patient denies chest pain, fever, shortness breath, nausea, vomiting, change in vision, loss of bowel/bladder control. Past Medical History Past Medical History: Blood Disorder, Diabetes Mellitus, Hyperlipidemia, Hypertension, Osteoarthritis (OA), Thyroid Disorder Additional Past Medical History / Comment(s): ANEMIA. History of Any Multi-Drug Resistant Organisms: None Reported Past Surgical History: Appendectomy, Bowel Resection, Hysterectomy Additional Past Surgical History / Comment(s): bowel tumor removed. Past Anesthesia/Blood Transfusion Reactions: No Reported Reaction Past Psychological History: No Psychological Hx Reported Smoking Status: Never smoker Past Alcohol Use History: None Reported Past Drug Use History: None Reported Medications and Allergies Home Medications Medication Instructions Recorded Confirmed Type Cyanocobalamin (Vitamin B-12) 1,000 mcg PO DAILY 12/17/17 07/06/22 History [Vitamin B-12] Esomeprazole Magnesium 40 mg PO DAILY 12/17/17 07/06/22 History Ezetimibe [Zetia] 10 mg PO DAILY 12/17/17 07/06/22 History Glimepiride [Amaryl] 8 mg PO AC-BRKFST 12/17/17 07/06/22 History Vitamin E (Dl,Tocopheryl Acet) 400 unit PO DAILY 12/17/17 07/06/22 History [Vitamin E] Vits A,C,E/Lutein/Minerals 1 tab PO DAILY 12/17/17 07/06/22 History [Ocuvite with Lutein Tablet] amLODIPine [Norvasc] 5 mg PO DAILY 12/17/17 07/06/22 History metFORMIN HCL [Glucophage] 500 mg PO QID 12/17/17 07/06/22 History Aspirin [Adult Low Dose Aspirin EC] 81 mg PO DAILY 01/06/21 07/06/22 History Ferrous Sulfate [Iron (65 MG 325 mg PO BID 01/06/21 07/06/22 History Elemental)] Insulin Glargine [Lantus] 10 units SQ DAILY 01/06/21 07/06/22 History Cinacalcet [Sensipar] 30 mg PO SUWE 07/06/22 07/06/22 History Fish Oil/Dha/Epa [Fish Oil 1,200 1 cap PO DAILY 07/06/22 07/06/22 History mg Fish Oil] Gabapentin 300 mg PO BID 07/06/22 07/06/22 History Glucosamine/Chondr Browne A Sod [Osteo 1 tab PO BID 07/06/22 07/06/22 History Bi-Flex Caplet] Hydroxychloroquine Sulfate 400 mg PO DAILY 07/06/22 07/06/22 History Insulin Lispro [humaLOG Kwikpen] See Protocol SQ DIRECTED 07/06/22 07/06/22 History Levothyroxine Sodium [Synthroid] 50 mcg PO DAILY 07/06/22 07/06/22 History Magnesium Oxide 400 mg PO BID 07/06/22 07/06/22 History Neuriva 1 cap PO DAILY 07/06/22 07/06/22 History Nystatin 100,000 Unit/ml Susp 4 ml PO QID 07/06/22 07/06/22 History [Mycostatin Oral Susp] lisinopriL [Zestril] 10 mg PO DAILY 07/06/22 07/06/22 History predniSONE 2 mg PO DAILY 07/06/22 07/06/22 History sitaGLIPtin [Januvia] 50 mg PO DAILY 07/06/22 07/06/22 History traMADol HCL 50 mg PO DAILY 07/06/22 07/06/22 History Allergies Allergy/AdvReac Type Severity Reaction Status Date / Time ragweed pollen Allergy Mild Unknown Verified 07/06/22 11:12 cat dander Allergy Unknown Verified 07/06/22 11:12 shellfish derived [Shellfish] Allergy Itching Verified 07/06/22 11:12 tree and shrub pollen Allergy Unknown Verified 07/06/22 11:12 Physical Examination Inspection: Negative for any open fractures, significant ecchymosis/erythema/ulcers. Right leg is shortened and externally rotated a bit Sensation: Sensation is equal, symmetric, bilaterally intact throughout the upper and lower extremities. Palpation: Significant tenderness to palpation diffusely throughout the right hip. Nontender to palpation throughout rest of exam Range of motion: Patient has full range of motion bilateral upper extremities and left lower extremity on exam. Patient is able to dorsi and plantarflex right ankle and wiggle toes in right foot. Patient does have limited range of motion in the right knee flexion/extension and right hip in flexion/extension due to pain and injury. Patient does have pain with external and internal rotation of right hip Motor: 5/5 in all major motor groups in bilateral upper extremities and left lower extremity exam. 4/5 in resisted right ankle dorsi/plantar flexion. 4/5 in resisted right knee flexion/extension. Right hip were exam not performed due to the injury/pain Neurovascular status: Radial pulse intact, 2+. Cap refill under 3 seconds in digits upper extremity. Dorsalis pedis pulse palpable, but faint bilaterally. Special tests: Negative Homans bilaterally. Results - Labs Labs: Abnormal Lab Results - Last 24 Hours (Table) 07/06/22 Range/Units 08:42 Sodium 135 L (137-145) mmol/L Glucose 170 H (74-99) mg/dL Total Protein 6.2 L (6.3-8.2) g/dL H & H 07/06/22 Range/Units 08:42 Hgb 12.1 (11.4-16.0) gm/dL Hct 36.3 (34.0-46.0) % Coagulation 07/06/22 Range/Units 08:42 INR 0.9 (<1.2) Result Diagrams: 07/06/22 08:42 07/06/22 08:42 - Diagnostic results Hip x-ray: report reviewed, image reviewed (Right hip x-ray does reveal right hip femoral neck fracture) Assessment and Plan Assessment: 1. Right hip femoral neck fracture Plan: 1. Right hip femoral neck fracture - x-rays of the right hip does reveal femoral neck fracture. At this time we are recommending orthopedic surgical intervention in the form of a right total hip arthroplasty as the patient is quite active at home. Patient is to remain nothing by mouth at this time. Surgery has been scheduled for 3:30 PM this afternoon for right total hip arthroplasty by Dr. Flor. With hold blood thinners at this time. Pain medication as needed 2. Appreciate medical management 3. Pain management - [place]; IV pain meds 4. DVT prophylaxis - with hold blood thinners at this time 5. GI recs 6. PT/OT - nonweightbearing right lower extremity Time with Patient: Less than 30
[2022-07-06] MEDS ORDERED: HYDROmorphone 1 MG/ML 1 ML SYRINGE IVP PRN (10:49)
[2022-07-06] MEDS ORDERED: DEXTROSE 50% SYRINGE 50 ML IVP PRN ×2 (12:01)
[2022-07-06] MEDS: INSULIN ASPART (NovoLOG) 100 UNIT/ML VIAL SQ SCH ×2 (12:38→19:50)
[2022-07-06 12:42] LABS: Glucose,Whole Blood 84 mg/dL (70-110)
[2022-07-06] MEDS: INSULIN DETEMIR (LEVEMIR) 100 UNIT/ML SYR SQ SCH (12:49)
--- NOTE | 2022-07-06 13:39 | P.CONS ---
History of Present Illness - Reason for Consult Consult date: 07/06/22 Medical management Requesting physician: Aries Flor - Chief Complaint Fall - History of Present Illness This is a pleasant 77-year-old patient, who follows with Dr. Rose. Chronic stable medical conditions include diabetes, hypertension, hyperlipidemia, osteomyelitis, hypothyroid. Patient was trying to avoid soup cans that should put on the bed in dropping in her feet resulting in a fall.. [place] in the right hip. Has a femoral neck fracture mildly impacted. Patient denies any cardiac history. Normally does half a treadmill. Able to walk well. No chest pain or shortness of breath. No palpitation. This was purely a mechanical fall. Patient's daughter at the bedside in the ER. Review of systems: GEN.: None EYES: None HEENT: None NECK: None RESPIRATORY: None CARDIOVASCULAR: None GASTROINTESTINAL: None GENITOURINARY: None MUSCULOSKELETAL: Joint pains LYMPHATICS: None HEMATOLOGICAL: None PSYCHIATRY: None NEUROLOGICAL: None Past medical history to include: Diabetes, hypertension, hyperlipidemia, osteomyelitis, hypothyroid, bowel tumor removed Social history: . Lives alone. No smoking or alcohol. Family history: Reviewed, noncontributory to presentation Physical examination: VITAL SIGNS: 98.6, 79, 18, 136/63, 96% room air GENERAL: [BMI 30.2, laying in bed awake not in distress. EYES: Pupils equal. Conjunctiva normal. HEENT: External appearance of nose and ears normal, oral cavity grossly normal. NECK: JVD not raised; masses not palpable. HEART: First and second heart sounds are normal; no edema. LUNGS: Respiratory rate normal; clear to auscultation. ABDOMEN: Soft, nontender, liver spleen not palpable, no masses palpable. PSYCH: Alert and oriented x3; mood and affect normal. MUSCULOSKELETAL:No Clubbing/cyanosis;muscles-grossly intact. Evidence of OA. Liver edge range of motion right hip. NEUROLOGICAL: Cranial nerves grossly intact; no facial asymmetry, power and sensation grossly intact. LYMPHATICS: No lymph nodes palpable in the axilla and neck INVESTIGATIONS, reviewed in the clinical context: White count 6.100 1112.1 platelets 339 potassium 4.2 creatinine 0.83 EKG tracing personally reviewed by me-normal sinus rhythm Chest x-ray film personally reviewed by me-mild cardiomegaly. Lungs clear X-ray hip: Right femur neck fracture Assessment and plan: -Right femur neck fracture mildly impacted, secondary to mechanical fall Patient is due to go down for surgery. This afternoon -Diabetes mellitus type 2 Oral oral hypoglycemic. Accu-Cheks with sliding scale. Diabetic diet. Nothing by mouth currently -GERD PPI -Essential hypertension Norvasc, Zestril -Hypercholesterolemia zetia -Hypothyroid Synthroid -Primary osteoarthritis multiple joints Pain medications as needed Perioperative cardiovascular risk assessment. Patient has no cardiac history. Has a good exercise tolerance. Able to do 30 minutes of treadmill every day. No chest pain or shortness breath. No cardiovascular perioperative risk. Stable to proceed for surgery Care was discussed with the patient daughter the bedside. Questions answered. Past Medical History Past Medical History: Blood Disorder, Diabetes Mellitus, Hyperlipidemia, Hypertension, Osteoarthritis (OA), Thyroid Disorder Additional Past Medical History / Comment(s): ANEMIA. History of Any Multi-Drug Resistant Organisms: None Reported Past Surgical History: Appendectomy, Bowel Resection, Hysterectomy Additional Past Surgical History / Comment(s): bowel tumor removed. Past Anesthesia/Blood Transfusion Reactions: No Reported Reaction Past Psychological History: No Psychological Hx Reported Smoking Status: Never smoker Past Alcohol Use History: None Reported Past Drug Use History: None Reported Medications and Allergies Home Medications Medication Instructions Recorded Confirmed Type Cyanocobalamin (Vitamin B-12) 1,000 mcg PO DAILY 12/17/17 07/06/22 History [Vitamin B-12] Esomeprazole Magnesium 40 mg PO DAILY 12/17/17 07/06/22 History Ezetimibe [Zetia] 10 mg PO DAILY 12/17/17 07/06/22 History Glimepiride [Amaryl] 8 mg PO AC-BRKFST 12/17/17 07/06/22 History Vitamin E (Dl,Tocopheryl Acet) 400 unit PO DAILY 12/17/17 07/06/22 History [Vitamin E] Vits A,C,E/Lutein/Minerals 1 tab PO DAILY 12/17/17 07/06/22 History [Ocuvite with Lutein Tablet] amLODIPine [Norvasc] 5 mg PO DAILY 12/17/17 07/06/22 History metFORMIN HCL [Glucophage] 500 mg PO QID 12/17/17 07/06/22 History Aspirin [Adult Low Dose Aspirin EC] 81 mg PO DAILY 01/06/21 07/06/22 History Ferrous Sulfate [Iron (65 MG 325 mg PO BID 01/06/21 07/06/22 History Elemental)] Insulin Glargine [Lantus] 10 units SQ DAILY 01/06/21 07/06/22 History Cinacalcet [Sensipar] 30 mg PO SUWE 07/06/22 07/06/22 History Fish Oil/Dha/Epa [Fish Oil 1,200 1 cap PO DAILY 07/06/22 07/06/22 History mg Fish Oil] Gabapentin 300 mg PO BID 07/06/22 07/06/22 History Glucosamine/Chondr Browne A Sod [Osteo 1 tab PO BID 07/06/22 07/06/22 History Bi-Flex Caplet] Hydroxychloroquine Sulfate 400 mg PO DAILY 07/06/22 07/06/22 History Insulin Lispro [humaLOG Kwikpen] See Protocol SQ DIRECTED 07/06/22 07/06/22 History Levothyroxine Sodium [Synthroid] 50 mcg PO DAILY 07/06/22 07/06/22 History Magnesium Oxide 400 mg PO BID 07/06/22 07/06/22 History Neuriva 1 cap PO DAILY 07/06/22 07/06/22 History Nystatin 100,000 Unit/ml Susp 4 ml PO QID 07/06/22 07/06/22 History [Mycostatin Oral Susp] lisinopriL [Zestril] 10 mg PO DAILY 07/06/22 07/06/22 History predniSONE 2 mg PO DAILY 07/06/22 07/06/22 History sitaGLIPtin [Januvia] 50 mg PO DAILY 07/06/22 07/06/22 History traMADol HCL 50 mg PO DAILY 07/06/22 07/06/22 History Allergies Allergy/AdvReac Type Severity Reaction Status Date / Time ragweed pollen Allergy Mild Unknown Verified 07/06/22 11:12 cat dander Allergy Unknown Verified 07/06/22 11:12 shellfish derived [Shellfish] Allergy Itching Verified 07/06/22 11:12 tree and shrub pollen Allergy Unknown Verified 07/06/22 11:12 Physical Exam Vitals: Vital Signs Temp Pulse Resp BP Pulse Ox 07/06/22 11:00 81 18 136/63 96 07/06/22 08:32 98.6 F 79 18 178/85 100 Intake and Output 1207/06/22 07/06/22 22:59 06:59 14:59 Other: Weight 79.832 kg Results CBC & Chem 7: 07/06/22 08:42 07/06/22 08:42 Labs: Abnormal Lab Results - Last 24 Hours (Table) 07/06/22 Range/Units 08:42 Sodium 135 L (137-145) mmol/L Glucose 170 H (74-99) mg/dL Total Protein 6.2 L (6.3-8.2) g/dL
[2022-07-06] MEDS ORDERED: LACTATED RINGERS 1,000 ML IV ONE ×2 (15:27→17:51)
[2022-07-06 15:57] LABS: Glucose,Whole Blood 119 mg/dL (70-110)
[2022-07-06] MEDS ORDERED: MIDAZOLAM 2 MG/2 ML VIAL IVP ONE (15:59)
[2022-07-06] MEDS ORDERED: MIDAZOLAM 2 MG/2 ML VIAL ONE (16:11)
[2022-07-06] MEDS ORDERED: fentaNYL (PF) 50 MCG/ML 2 ML AMP ONE (16:11)
[2022-07-06] MEDS ORDERED: PHENYLEPHRINE-0.9% NACL SYG 1,000 MCG/10 ML SYRINGE ONE (16:11)
[2022-07-06] MEDS ORDERED: KETAMINE 10 MG/ML 20 ML VIAL ONE (16:11)
[2022-07-06] MEDS ORDERED: PROPOFOL 10 MG/ML 20 ML VIAL IV ONE (16:11)
[2022-07-06] MEDS ORDERED: SODIUM CHLORIDE 0.9% 50 ML with ceFAZolin 2,000 MG IV ONE ×2 (16:16)
--- NOTE | 2022-07-06 16:16 | P.ANPRN ---
Procedure Note - Anesthesia - Nerve Block Performed Right Dwayne Single Time Out Performed: Yes Date of Procedure: 07/06/22 Procedure Start Time: 15:59 Procedure Stop Time: 16:06 Location of Patient: PreOp Indication: Acute Post-Operative Pain, Requested by Surgeon Sedation Type: Sedate with meaningful contact maintained Preparation: Sterile Prep, Sterile Dressing Position: Supine Catheter: None Needle Types: Facet Needle Gauge: 20 Ultrasound used to visualize needle placement: Yes Ultrasound used to observe medication spread: Yes Injectate: 0.5% Ropivacaine (see comment for volume) (30 ml + decadron 4 mg) Blood Aspirated: No Pain Paresthesia on Injection Noted: No Resistance on Injection: Normal Image Stored and Saved: Yes Events: Uneventful and Well Tolerated
[2022-07-06] MEDS ORDERED: NALOXONE 0.4 MG/ML 1 ML VIAL IV PRN (17:52)
--- NOTE | 2022-07-06 17:59 | P.OP ---
Date of Procedure: 07/06/22 Preoperative Diagnosis: Displaced right subcapital femoral neck fracture Postoperative Diagnosis: Same Procedure(s) Performed: Right total hip arthroplastypress-fitlateral approach Implants: Depuy Corail size 11 standard collared press-fit femoral stem, 32+1 cobalt chrome femoral head, 50 mm [place] acetabular shell with neutral polyethylene liner. Anesthesia: spinal Surgeon: Aries Flor Tray Drier Operator #1: Ang Olguin Estimated Blood Loss (ml): 100 Pathology: other (Femoral head) Condition: stable Disposition: PACU Indications for Procedure: The patient is a 77-year-old female who is a community ambulator without as sistive devices presents after falling at home injuring her right hip. Upon evaluation she was noted have a displaced subcapital femoral neck fracture on the right. A discussion of the risks and benefits of operative intervention was made with patient care to proceed with surgery. Operative options to include hemiarthroplasty versus total hip arthroplasty were discussed. She wanted to proceed with total hip arthroplasty secondary to her activity level. Specific risks of surgery to include infection, neurovascular injury, development of blood clots, fracture, leg length discrepancy, possible instability, possible component loosening/failure and need for subsequent procedures was discussed. Informed consent was obtained. Operative Findings: As below Description of Procedure: The patient was brought to the operating room, and after induction of spinal anesthesia was placed in a lateral decubitus position. The bony prominences were appropriately padded. The pelvis was stable perpendicular to the floor with a pegboard. The right lower extremity was prepped and draped in normal fashion. A 12 cm incision was then made centered over the greater trochanter extending superiorly to level the ASIS and distally in line with the femoral shaft. The skin and subcutaneous tissues were divided sharply. Electrocautery was used for hemostasis. The fascia irineo and gluteus michelle fascia was split in line with the skin incision. The muscle fibers were bluntly dissected proximally. A self-retaining retractor was placed. The anterior and posterior margins of the gluteus medius muscles identified and the anterior two thirds was detached from the greater trochanter with electrocautery. The gluteus minimus tendon was identified and detached in a similar fashion. A wide capsulotomy was performed. The femoral neck fracture was identified in the lower neck cut was made approximately 1 1/2 cm above the level of the lesser trochanter with a sagittal saw at a 45 the shaft. The head was then extracted with a corkscrew. Attention was then paid towards preparing the acetabular. Anterior and posterior retractors were placed. The remaining capsular labral tissues debrided sharply clearly defining the acetabular margins. Began reaming with a 43 mm reamer taking care to initially medialize, then reaming at 45 of ab duction and 20 of anteversion. Sequential reaming is performed up to 49 mm. This was down to bleeding bony surface. A trial 50 mm acetabular shell was inserted at 45 of abduction and 20 of anteversion. This was fully seated. There was good rim fit and stability. A neutral polyethylene liner was then impacted. Care taken to avoid any soft tissue interposition. Attention was then paid towards preparing the proximal femur. A box chisel was used to open the metaphyseal region. A canal finder was used to find the femoral canal. Sequential broaching was performed up to a size 11. This is placed in 15 of anteversion with the leg perpendicular floor judging off the trans-epicondylar axis. There is good rotational stability. A calcar mill was used to fashion the medial calcar. A trial standard neck along with a 32 mm + 1 trial head was placed. The hip was gently reduced. It was taken through range of motion. I felt to be stable in flexion and extension with internal and external rotation. I felt there was adequate latter day of soft tissue tension. The hip was gently dislocated. The trial components removed. Pulsatile lavage was utilized. The final size 11 standard collared femoral stem was inserted again with the leg perpendicular to the floor in 15 of anteversion. Again there was good rotational stability. A 32 mm + 1 cobalt chrome femoral head was gently impacted. The hip was gently reduced. Again it was taken through motion and felt to be stable in flexion and extension with internal and external rotation. Pulsatile lavage was again utilized. With the leg in abduction the gluteus minimus and medius tendons reattached to the greater trochanter with #2 Ethibond suture. There was minimal drainage therefore a deep drain was not placed. The fascia irineo and gluteus michelle fascia was closed with #2 Ethibond suture. The subcutaneous tissues were reapproximated interrupted 2-0 Vicryl sutures. The skin was reapproximated with 3-0 subcuticular strata fix suture. Skin tape and adhesive was applied. A sterile dressing was applied. The patient was awoken from sedation and transferred to recovery room in good condition. Blood loss was estimated 100 mL. No complications were incurred. Sponge and needle counts were correct in the case. Andrew WHITE assisted during the major composes case to include exposure, implantation, and closure.
--- NOTE | 2022-07-06 18:35 | XR ---
EXAMINATION TYPE: XR Hip Limited RT DATE OF EXAM: 07/06/2022 COMPARISON: NONE HISTORY: Postop TECHNIQUE: Single view FINDINGS: There is a right hip prosthesis. Components are in anatomic position. IMPRESSION: No complicating process seen.
[2022-07-06] MEDS ORDERED: ONDANSETRON 4 MG/2 ML VIAL IVP ONE (18:41)
[2022-07-06] MEDS: HYDROmorphone 1 MG/ML 1 ML SYRINGE IVP PRN (20:39)
[2022-07-06] MEDS: GABAPENTIN 300 MG CAP PO SCH (20:40)
[2022-07-06] MEDS: FERROUS SULFATE 325 MG TAB PO SCH (20:40)
[2022-07-06] MEDS: MAGNESIUM OXIDE 400 MG TAB PO SCH (20:40)
[2022-07-06 22:56] LABS: Basophils % (A) 0 %; Eosinophils % (A) 0 %; HGB 11.4 gm/dL (11.4-16.0); Lymphocytes # (A) 0.6 k/uL (1.0-4.8); Lymphocytes % (A) 6 %; MCH 31.2 pg (25.0-35.0); MCHC 33.4 g/dL (31.0-37.0); MCV 93.5 fL (80.0-100.0); Mean Platelet Volume 8.4; Monocytes # (A) 0.4 k/uL (0-1.0); Monocytes % (A) 4 %; Neutrophils # (A) 9.5 k/uL (1.3-7.7); Neutrophils % (A) 90 %; Platelet Count 287 k/uL (150-450); RBC 3.64 m/uL (3.80-5.40); RDW 12.5 % (11.5-15.5); WBC 10.6 k/uL (3.8-10.6)
[2022-07-07] MEDS: HYDROmorphone 1 MG/ML 1 ML SYRINGE IVP PRN ×2 (00:26→04:43)
[2022-07-07] MEDS: LEVOTHYROXINE 50 MCG TAB PO SCH (04:54)
[2022-07-07 06:33] LABS: Glucose,Whole Blood 194 mg/dL (70-110)
[2022-07-07] MEDS ORDERED: NON FORMULARY DRUG (Neuriva 1 CAP) PO SCH (09:00)
[2022-07-07] MEDS: INSULIN ASPART (NovoLOG) 100 UNIT/ML VIAL SQ SCH ×3 (09:03→18:29)
[2022-07-07] MEDS: ASPIRIN 81 MG PO SCH (09:04)
[2022-07-07] MEDS: PANTOPRAZOLE 40 MG TABLET PO SCH (09:04)
[2022-07-07] MEDS: CYANOCOBALAMIN 500 MCG TAB PO SCH (09:04)
[2022-07-07] MEDS: amLODIPine 5 MG TAB PO SCH (09:04)
[2022-07-07] MEDS: GABAPENTIN 300 MG CAP PO SCH ×2 (09:05→19:59)
[2022-07-07] MEDS: FERROUS SULFATE 325 MG TAB PO SCH ×2 (09:05→19:56)
[2022-07-07] MEDS: EZETIMIBE 10 MG TAB PO SCH (09:05)
[2022-07-07] MEDS: ENOXAPARIN 40 MG/0.4 ML SYRINGE SQ SCH (09:05)
[2022-07-07] MEDS: HYDROXYCHLOROQUINE SULFATE 200 MG TAB PO SCH (09:05)
[2022-07-07] MEDS: predniSONE 1 MG TAB PO SCH (09:06)
[2022-07-07] MEDS: lisinopriL 10 MG TAB PO SCH (09:06)
[2022-07-07] MEDS: LINAGLIPTIN 5 MG TABLET PO SCH (09:06)
[2022-07-07] MEDS: INSULIN DETEMIR (LEVEMIR) 100 UNIT/ML SYR SQ SCH (09:06)
[2022-07-07] MEDS: VITAMIN E (DL,TOCOPHERYL ACET) 400 UNIT (180 MG) CAP PO SCH (09:07)
[2022-07-07] MEDS: VIT A,C & E-LUTEIN-MINERALS 1 EACH TAB PO SCH (09:07)
[2022-07-07] MEDS: HYDROmorphone 0.5 MG/0.5 ML SYRINGE IVP PRN ×2 (09:07→16:35)
[2022-07-07] MEDS: MAGNESIUM OXIDE 400 MG TAB PO SCH ×2 (09:50→19:57)
[2022-07-07 11:12] LABS: Glucose,Whole Blood 281 mg/dL (70-110)
[2022-07-07] MEDS: HYDROcodone/APAP 7.5-325MG 1 EACH TAB PO PRN ×3 (11:34→19:56)
--- NOTE | 2022-07-07 12:18 | P.PN ---
Subjective Progress Note Date: 07/07/22 Principal diagnosis: status post right total hip arthroplasty Patient evaluated at bedside, she is resting in her hospital bed. Patient has been up sitting in her chair for quite a while. She states that the leg does have some generalized discomfort but nothing severe. She denies any headaches, lightheadedness, chest pain or shortness of breath. Objective - Vital Signs Vital signs: Vital Signs Temp 97.5 F L 07/07/22 11:12 Pulse 84 07/07/22 11:12 Resp 17 07/07/22 11:12 BP 118/68 07/07/22 11:12 Pulse Ox 99 07/07/22 11:12 FiO2 Intake & Output 07/06/22 07/07/22 07/07/22 18:59 06:59 18:59 Intake Total 1050 1140 Output Total 350 700 300 Balance 700 440 -300 Weight 79.832 kg Intake: IV 1050 Intake, IV Titration 550 Amount Sodium Chloride 0.9% 1, 500 000 ml @ 75 mls/hr IV . [id number] ONE Rx#:[id number] ceFAZolin 2 gm In Sodium 50 Chloride 0.9% 50 ml @ 100 mls/hr IVPB Q8HR [facility] Rx# :[id number] Oral 590 Output: Urine 250 700 300 Estimated Blood Loss 100 Other: Voiding Method Indwelling Catheter Indwelling Catheter - Exam Right lower extremity: Incision is clean, dry, and intact. The exofin fusion tape is in good condition. There is minimal soft tissue swelling and ecchymosis surrounding the medial and lateral aspects of the incision. Calf is soft, no tenderness with palpation. Plantar flexion, dorsiflexion, EHL, FHL are intact. Sensory exam to light touch throughout the extremity is intact, dorsal pedis pulses 2+. - Labs CBC & Chem 7: 07/06/22 22:16 07/06/22 08:42 Labs: Abnormal Lab Results - Last 24 Hours (Table) 07/06/22 07/06/22 07/07/22 Range/Units 15:54 22:16 06:31 RBC 3.64 L (3.80-5.40) m/uL Neutrophils # 9.5 H (1.3-7.7) k/uL Lymphocytes # 0.6 L (1.0-4.8) k/uL POC Glucose (mg/dL) 119 H 194 H (70-110) mg/dL 07/07/22 Range/Units 11:10 RBC (3.80-5.40) m/uL Neutrophils # (1.3-7.7) k/uL Lymphocytes # (1.0-4.8) k/uL POC Glucose (mg/dL) 281 H (70-110) mg/dL Assessment and Plan Assessment: Postoperative day #1 status post right total hip arthroplasty, right femoral neck fracture status post fall Plan: Pain control, continue with current medications DVT prophylaxis, continue current medications Dressing instructions, continue to monitor Weight-bear as tolerated, utilize walker at all times PT/OT Current incentive spirometer Other medical staff services coordinator recommendations Discharge planning: Possible discharge to home with home care versus subacute rehab Time with Patient: Less than 30
--- NOTE | 2022-07-07 15:53 | P.PN ---
Progress Note - Text Progress Note Date: 07/07/22 - Chief Complaint Fall Hospital course This is a pleasant 77-year-old patient, who follows with Dr. Rose. Chronic stable medical conditions include diabetes, hypertension, hyperlipidemia, osteomyelitis, hypothyroid. Patient was trying to avoid soup cans that should put on the bed in dropping in her feet resulting in a fall.. [place] in the right hip. Has a femoral neck fracture mildly impacted. Patient denies any cardiac history. Normally does half a treadmill. Able to walk well. No chest pain or shortness of breath. No palpitation. This was purely a mechanical fall. Patient's daughter at the bedside in the ER. 07/07/2022: Yesterday Dr. Flor candidate out a right total hip arthroplasty press-fit. Patient laying in bed. Pain control. Did tolerate some diet. Did sit up in a chair. No nausea vomiting. Otherwise comfortable. Active Medications Hydrocodone Bitart/Acetaminophen (Hydrocodone/Apap 7.5-325mg 1 Each Tab) 1 each PO Q4HR PRN PRN Reason: Pain Last Admin: 07/07/22 15:24 Dose: 1 each Amlodipine Besylate (Amlodipine 5 Mg Tab) 5 mg PO DAILY [facility] Last Admin: 07/07/22 09:04 Dose: 5 mg Aspirin (Aspirin 81 Mg) 81 mg PO DAILY [facility] Last Admin: 07/07/22 09:04 Dose: 81 mg Cinacalcet (Cinacalcet 30 Mg Tab) 30 mg PO SUWE [facility] Cyanocobalamin (Cyanocobalamin 500 Mcg Tab) 1,000 mcg PO DAILY [facility] Last Admin: 07/07/22 09:04 Dose: 1,000 mcg Dextrose/Water (Dextrose 50% Syringe 50 Ml) 25 ml IVP PER PROTOCOL PRN; Protocol PRN Reason: Hypoglycemia Dextrose/Water (Dextrose 50% Syringe 50 Ml) 50 ml IVP PER PROTOCOL PRN; Protocol PRN Reason: Hypoglycemia Ezetimibe (Ezetimibe 10 Mg Tab) 10 mg PO DAILY [facility] Last Admin: 07/07/22 09:05 Dose: 10 mg Enoxaparin Sodium (Enoxaparin 40 Mg/0.4 Ml Syringe) 40 mg SQ DAILY [facility] Last Admin: 07/07/22 09:05 Dose: 40 mg Ferrous Sulfate (Ferrous Sulfate 325 Mg Tab) 325 mg PO BID [facility] Last Admin: 07/07/22 09:05 Dose: 325 mg Gabapentin (Gabapentin 300 Mg Cap) 300 mg PO BID [facility] Last Admin: 07/07/22 09:05 Dose: 300 mg Hydromorphone HCl (Hydromorphone 1 Mg/Ml 1 Ml Syringe) 1 mg IVP Q3HR PRN PRN Reason: Pain Last Admin: 07/06/22 12:43 Dose: 1 mg Hydromorphone HCl (Hydromorphone 0.5 Mg/0.5 Ml Syringe) 0.5 mg IVP Q3HR PRN PRN Reason: Pain Scale 4 to 6 Last Admin: 07/07/22 09:07 Dose: 0.5 mg Hydromorphone HCl (Hydromorphone 1 Mg/Ml 1 Ml Syringe) 1 mg IVP Q3HR PRN PRN Reason: Pain Scale 7 to 10 Last Admin: 07/07/22 04:43 Dose: 1 mg Hydroxychloroquine Sulfate (Hydroxychloroquine Sulfate 200 Mg Tab) 400 mg PO DAILY [facility] Last Admin: 07/07/22 09:05 Dose: 400 mg Insulin Aspart (Insulin Aspart (Novolog) 100 Unit/Ml Vial) 0 unit SQ AC-TID [facility]; Protocol Last Admin: 07/07/22 14:20 Dose: 6 unit Insulin Detemir (Insulin Detemir (Levemir) 100 Unit/Ml Syr) 10 unit SQ DAILY [facility] Last Admin: 07/07/22 09:06 Dose: 10 unit Levothyroxine Sodium (Levothyroxine 50 Mcg Tab) 50 mcg PO DAILY@0630 [facility] Last Admin: 07/07/22 04:54 Dose: 50 mcg Linagliptin (Linagliptin 5 Mg Tablet) 5 mg PO DAILY [facility] Last Admin: 07/07/22 09:06 Dose: 5 mg Lisinopril (Lisinopril 10 Mg Tab) 10 mg PO DAILY [facility] Last Admin: 07/07/22 09:06 Dose: 10 mg Magnesium Oxide (Magnesium Oxide 400 Mg Tab) 400 mg PO BID [facility] Last Admin: 07/07/22 09:50 Dose: 400 mg Multivitamins/Minerals (Vit A,C & D-Pldmxo-Qszwqdgy 1 Each Tab) 1 each PO DAILY [facility] Last Admin: 07/07/22 09:07 Dose: 1 each Naloxone HCl (Naloxone 0.4 Mg/Ml 1 Ml Vial) 0.2 mg IV Q2M PRN PRN Reason: Opioid Reversal Pantoprazole Sodium (Pantoprazole 40 Mg Tablet) 40 mg PO AC-BRKFST [facility] Last Admin: 07/07/22 09:04 Dose: 40 mg Prednisone (Prednisone 1 Mg Tab) 2 mg PO DAILY [facility] Last Admin: 07/07/22 09:06 Dose: 2 mg Vitamin E (Vitamin E (Dl,Tocopheryl Acet) 400 Unit (180 Mg) Cap) 400 unit PO DAILY [facility] Last Admin: 07/07/22 09:07 Dose: 400 unit Past medical history to include: Diabetes, hypertension, hyperlipidemia, osteomyelitis, hypothyroid, bowel tumor removed Social history: . Lives alone. No smoking or alcohol. Family history: Reviewed, noncontributory to presentation Physical examination: VITAL SIGNS: 97.5, 84, 17, 118/68, 99% room air GENERAL: Laying in bed, awake, comfortable EYES: Pupils equal. Conjunctiva normal. HEENT: External appearance of nose and ears normal, oral cavity grossly normal. NECK: JVD not raised; masses not palpable. HEART: First and second heart sounds are normal; no edema. LUNGS: Respiratory rate normal; clear to auscultation. ABDOMEN: Soft, nontender, liver spleen not palpable, no masses palpable. PSYCH: Alert and oriented x3; mood and affect normal. MUSCULOSKELETAL:No Clubbing/cyanosis;muscles-grossly intact. Evidence of OA. Dressing over right hip incision INVESTIGATIONS, reviewed in the clinical context: White count 6.100 1112.1 platelets 339 potassium 4.2 creatinine 0.83 EKG tracing personally reviewed by me-normal sinus rhythm Chest x-ray film personally reviewed by me-mild cardiomegaly. Lungs clear X-ray hip: Right femur neck fracture Assessment and plan: -Right femur neck fracture mildly impacted, secondary to mechanical fall Right total hip arthroplasty press-fit by Dr. Flor on July 06. -Diabetes mellitus type 2 Resume metformin today. Trajenta.. Accu-Cheks with sliding scale. Diabetic diet. -GERD PPI -Essential hypertension Norvasc, Zestril -Hypercholesterolemia zetia -Hypothyroid Synthroid -Primary osteoarthritis multiple joints Pain medications as needed Admitted metformin today. Other medications to continue. Discussed with patient. Activity as tolerated.
[2022-07-07 17:04] LABS: Glucose,Whole Blood 213 mg/dL (70-110)
[2022-07-07] MEDS: metFORMIN 500 MG TAB PO SCH (18:29)
[2022-07-07 19:48] VITALS: RESP 16
[2022-07-07 20:17] LABS: Glucose,Whole Blood 237 mg/dL (70-110)
[2022-07-08] MEDS: HYDROcodone/APAP 7.5-325MG 1 EACH TAB PO PRN ×5 (02:02→19:02)
[2022-07-08] MEDS: LEVOTHYROXINE 50 MCG TAB PO SCH (05:31)
[2022-07-08 07:10] LABS: Glucose,Whole Blood 257 mg/dL (70-110)
[2022-07-08] MEDS: metFORMIN 500 MG TAB PO SCH ×2 (08:29→18:09)
[2022-07-08] MEDS: INSULIN ASPART (NovoLOG) 100 UNIT/ML VIAL SQ SCH ×3 (08:29→18:09)
[2022-07-08] MEDS: ASPIRIN 81 MG PO SCH (08:30)
[2022-07-08] MEDS: PANTOPRAZOLE 40 MG TABLET PO SCH (08:30)
[2022-07-08] MEDS: amLODIPine 5 MG TAB PO SCH (08:30)
[2022-07-08] MEDS: CYANOCOBALAMIN 500 MCG TAB PO SCH (08:31)
[2022-07-08] MEDS: HYDROXYCHLOROQUINE SULFATE 200 MG TAB PO SCH (08:31)
[2022-07-08] MEDS: ENOXAPARIN 40 MG/0.4 ML SYRINGE SQ SCH (08:31)
[2022-07-08] MEDS: FERROUS SULFATE 325 MG TAB PO SCH ×2 (08:31→20:07)
[2022-07-08] MEDS: EZETIMIBE 10 MG TAB PO SCH (08:31)
[2022-07-08] MEDS: GABAPENTIN 300 MG CAP PO SCH ×2 (08:31→20:07)
[2022-07-08] MEDS: VIT A,C & E-LUTEIN-MINERALS 1 EACH TAB PO SCH (08:32)
[2022-07-08] MEDS: LINAGLIPTIN 5 MG TABLET PO SCH (08:32)
[2022-07-08] MEDS: lisinopriL 10 MG TAB PO SCH (08:32)
[2022-07-08] MEDS: predniSONE 1 MG TAB PO SCH (08:32)
[2022-07-08] MEDS: MAGNESIUM OXIDE 400 MG TAB PO SCH ×2 (08:32→20:07)
[2022-07-08] MEDS: VITAMIN E (DL,TOCOPHERYL ACET) 400 UNIT (180 MG) CAP PO SCH (08:32)
[2022-07-08] MEDS: INSULIN DETEMIR (LEVEMIR) 100 UNIT/ML SYR SQ SCH (08:32)
[2022-07-08] MEDS ORDERED: CINACALCET 30 MG TAB PO SCH (09:00)
[2022-07-08 11:12] LABS: Glucose,Whole Blood 176 mg/dL (70-110)
--- NOTE | 2022-07-08 13:57 | P.PN ---
Subjective Progress Note Date: 07/08/22 Principal diagnosis: status post right total hip arthroplasty Patient evaluated at bedside, she is resting in her hospital bed. Pain is well controlled at this time, she has a chair little bit today. She denies any headaches, lightheadedness, chest pain or shortness of breath. Objective - Vital Signs Vital signs: Vital Signs Temp 98.7 F 07/08/22 11:45 Pulse 85 07/08/22 11:45 Resp 16 07/08/22 11:45 BP 124/70 07/08/22 11:45 Pulse Ox 95 07/08/22 11:45 FiO2 Intake & Output 07/07/22 07/08/22 07/08/22 18:59 06:59 18:59 Intake Total 590 Output Total 300 Balance -300 590 Intake: Oral 590 Output: Urine 300 Other: Voiding Method Indwelling Catheter Toilet Toilet Bedpan Bedside Commode # Voids 1 3 1 # Bowel Movements 1 - Exam Right lower extremity: Incision is clean, dry, and intact. The exofin fusion tape is in good condition. There is minimal soft tissue swelling and ecchymosis surrounding the medial and lateral aspects of the incision. Calf is soft, no tenderness with palpation. Plantar flexion, dorsiflexion, EHL, FHL are intact. Sensory exam to light touch throughout the extremity is intact, dorsal pedis pulses 2+. - Labs CBC & Chem 7: 07/06/22 22:16 07/06/22 08:42 Labs: Abnormal Lab Results - Last 24 Hours (Table) 07/07/22 07/07/22 07/08/22 Range/Units 17:03 20:16 07:08 POC Glucose (mg/dL) 213 H 237 H 257 H (70-110) mg/dL 07/08/22 Range/Units 11:12 POC Glucose (mg/dL) 176 H (70-110) mg/dL Assessment and Plan Assessment: Postoperative day #2 status post right total hip arthroplasty, right femoral neck fracture status post fall Plan: Pain control, continue with current medications DVT prophylaxis, continue current medications Dressing instructions, continue to monitor Weight-bear as tolerated, utilize walker at all times PT/OT Current incentive spirometer Other medical office technician recommendations Discharge planning: subacute rehab discharge on 07/09/2022 Time with Patient: Less than 30
--- NOTE | 2022-07-08 14:14 | P.PN ---
Progress Note - Text Progress Note Date: 07/08/22 - Chief Complaint Fall Hospital course This is a pleasant 77-year-old patient, who follows with Dr. Rose. Chronic stable medical conditions include diabetes, hypertension, hyperlipidemia, osteomyelitis, hypothyroid. Patient was trying to avoid soup cans that should put on the bed in dropping in her feet resulting in a fall.. [place] in the right hip. Has a femoral neck fracture mildly impacted. Patient denies any cardiac history. Normally does half a treadmill. Able to walk well. No chest pain or shortness of breath. No palpitation. This was purely a mechanical fall. Patient's daughter at the bedside in the ER. 07/07/2022: Yesterday Dr. Flor candidate out a right total hip arthroplasty press-fit. Patient laying in bed. Pain control. Did tolerate some diet. Did sit up in a chair. No nausea vomiting. Otherwise comfortable. 07/08/2022: Resting in bed. Pain at the operative site. Oral intake fair. No other issues. Late rehab. Active Medications Hydrocodone Bitart/Acetaminophen (Hydrocodone/Apap 7.5-325mg 1 Each Tab) 1 each PO Q4HR PRN PRN Reason: Pain Last Admin: 07/08/22 13:56 Dose: 1 each Amlodipine Besylate (Amlodipine 5 Mg Tab) 5 mg PO DAILY [facility] Last Admin: 07/08/22 08:30 Dose: 5 mg Aspirin (Aspirin 81 Mg) 81 mg PO DAILY [facility] Last Admin: 07/08/22 08:30 Dose: 81 mg Cinacalcet (Cinacalcet 30 Mg Tab) 30 mg PO SUWE [facility] Last Admin: 07/08/22 08:31 Dose: 30 mg Cyanocobalamin (Cyanocobalamin 500 Mcg Tab) 1,000 mcg PO DAILY [facility] Last Admin: 07/08/22 08:31 Dose: 1,000 mcg Dextrose/Water (Dextrose 50% Syringe 50 Ml) 25 ml IVP PER PROTOCOL PRN; Protocol PRN Reason: Hypoglycemia Dextrose/Water (Dextrose 50% Syringe 50 Ml) 50 ml IVP PER PROTOCOL PRN; Protocol PRN Reason: Hypoglycemia Ezetimibe (Ezetimibe 10 Mg Tab) 10 mg PO DAILY [facility] Last Admin: 07/08/22 08:31 Dose: 10 mg Enoxaparin Sodium (Enoxaparin 40 Mg/0.4 Ml Syringe) 40 mg SQ DAILY [facility] Last Admin: 07/08/22 08:31 Dose: 40 mg Ferrous Sulfate (Ferrous Sulfate 325 Mg Tab) 325 mg PO BID [facility] Last Admin: 07/08/22 08:31 Dose: 325 mg Gabapentin (Gabapentin 300 Mg Cap) 300 mg PO BID [facility] Last Admin: 07/08/22 08:31 Dose: 300 mg Hydromorphone HCl (Hydromorphone 1 Mg/Ml 1 Ml Syringe) 1 mg IVP Q3HR PRN PRN Reason: Pain Last Admin: 07/06/22 12:43 Dose: 1 mg Hydromorphone HCl (Hydromorphone 0.5 Mg/0.5 Ml Syringe) 0.5 mg IVP Q3HR PRN PRN Reason: Pain Scale 4 to 6 Last Admin: 07/07/22 16:35 Dose: 0.5 mg Hydromorphone HCl (Hydromorphone 1 Mg/Ml 1 Ml Syringe) 1 mg IVP Q3HR PRN PRN Reason: Pain Scale 7 to 10 Last Admin: 07/07/22 04:43 Dose: 1 mg Hydroxychloroquine Sulfate (Hydroxychloroquine Sulfate 200 Mg Tab) 400 mg PO DAILY [facility] Last Admin: 07/08/22 08:31 Dose: 400 mg Insulin Aspart (Insulin Aspart (Novolog) 100 Unit/Ml Vial) 0 unit SQ AC-TID [facility]; Protocol Last Admin: 07/08/22 13:02 Dose: 2 unit Insulin Detemir (Insulin Detemir (Levemir) 100 Unit/Ml Syr) 10 unit SQ DAILY [facility] Last Admin: 07/08/22 08:32 Dose: 10 unit Levothyroxine Sodium (Levothyroxine 50 Mcg Tab) 50 mcg PO DAILY@0630 [facility] Last Admin: 07/08/22 05:31 Dose: 50 mcg Linagliptin (Linagliptin 5 Mg Tablet) 5 mg PO DAILY [facility] Last Admin: 07/08/22 08:32 Dose: 5 mg Lisinopril (Lisinopril 10 Mg Tab) 10 mg PO DAILY [facility] Last Admin: 07/08/22 08:32 Dose: 10 mg Magnesium Oxide (Magnesium Oxide 400 Mg Tab) 400 mg PO BID [facility] Last Admin: 07/08/22 08:32 Dose: 400 mg Metformin HCl (Metformin 500 Mg Tab) 1,000 mg PO AC-BID [facility] Last Admin: 07/08/22 08:29 Dose: 1,000 mg Multivitamins/Minerals (Vit A,C & H-Snhqbr-Alniuzlt 1 Each Tab) 1 each PO DAILY [facility] Last Admin: 07/08/22 08:32 Dose: 1 each Naloxone HCl (Naloxone 0.4 Mg/Ml 1 Ml Vial) 0.2 mg IV Q2M PRN PRN Reason: Opioid Reversal Pantoprazole Sodium (Pantoprazole 40 Mg Tablet) 40 mg PO AC-BRKFST [facility] Last Admin: 07/08/22 08:30 Dose: 40 mg Prednisone (Prednisone 1 Mg Tab) 2 mg PO DAILY [facility] Last Admin: 07/08/22 08:32 Dose: 2 mg Vitamin E (Vitamin E (Dl,Tocopheryl Acet) 400 Unit (180 Mg) Cap) 400 unit PO DAILY [facility] Last Admin: 07/08/22 08:32 Dose: 400 unit Past medical history to include: Diabetes, hypertension, hyperlipidemia, osteomyelitis, hypothyroid, bowel tumor removed Social history: . Lives alone. No smoking or alcohol. Family history: Reviewed, noncontributory to presentation Physical examination: VITAL SIGNS: 98.7, 95, 16, 120/70, 95% on room air GENERAL: Laying in bed, awake, comfortable EYES: Pupils equal. Conjunctiva normal. HEENT: External appearance of nose and ears normal, oral cavity grossly normal. NECK: JVD not raised; masses not palpable. HEART: First and second heart sounds are normal; no edema. LUNGS: Respiratory rate normal; clear to auscultation. ABDOMEN: Soft, nontender, liver spleen not palpable, no masses palpable. PSYCH: Alert and oriented x3; mood and affect normal. MUSCULOSKELETAL:No Clubbing/cyanosis;muscles-grossly intact. Evidence of OA. Dressing over right hip incision INVESTIGATIONS, reviewed in the clinical context: White count 6.100 1112.1 platelets 339 potassium 4.2 creatinine 0.83 EKG tracing personally reviewed by me-normal sinus rhythm Chest x-ray film personally reviewed by me-mild cardiomegaly. Lungs clear X-ray hip: Right femur neck fracture Assessment and plan: -Right femur neck fracture mildly impacted, secondary to mechanical fall Right total hip arthroplasty press-fit by Dr. Flor on July 06. -Diabetes mellitus type 2 Resume Amaryl. Continue metformin, Trajenta.. Accu-Cheks with sliding scale. Diabetic diet. -GERD PPI -Essential hypertension Norvasc, Zestril -Hypercholesterolemia zetia -Hypothyroid Synthroid -Primary osteoarthritis multiple joints Pain medications as needed Resume Amaryl today. Other medications to continue. Discussed with patient. Activity as tolerated. Will need rehab. Consult Dr. Abdalla
[2022-07-08] MEDS: GLIMEPIRIDE 4 MG TAB PO SCH (15:37)
[2022-07-08 17:15] LABS: Glucose,Whole Blood 215 mg/dL (70-110)
[2022-07-08 18:36] LABS: Basophils % (A) 0 %; Eosinophils # (A) 0.1 k/uL (0-0.7); Eosinophils % (A) 1 %; HCT 27.2 % (34.0-46.0); Lymphocytes # (A) 1.4 k/uL (1.0-4.8); Lymphocytes % (A) 12 %; MCH 30.4 pg (25.0-35.0); MCHC 33.1 g/dL (31.0-37.0); MCV 91.9 fL (80.0-100.0); Mean Platelet Volume 9.3; Monocytes # (A) 0.8 k/uL (0-1.0); Monocytes % (A) 8 %; Neutrophils # (A) 8.4 k/uL (1.3-7.7); Neutrophils % (A) 76 %; Platelet Count 264 k/uL (150-450); RBC 2.96 m/uL (3.80-5.40); RDW 13.1 % (11.5-15.5); WBC 11.1 k/uL (3.8-10.6)
[2022-07-08 20:22] LABS: Glucose,Whole Blood 201 mg/dL (70-110)
[2022-07-09] MEDS: HYDROcodone/APAP 7.5-325MG 1 EACH TAB PO PRN ×2 (03:07→11:32)
--- NOTE | 2022-07-09 05:52 | P.CONS ---
History of Present Illness - Chief Complaint Walking difficulty - History of Present Illness I had the opportunity see patient for inpatient rehab consultation. Patient admitted to Dr. Flor July 06 history of fall and right hip pain. X-ray demonstrated femoral neck fracture. Underwent ERIC date of admission. Seen medically by Dr. Trevizo. PT and OT prescribed. PT reports moderate assistance for bed mobility and minimal assistance to transfer and gait 10 feet with roller walker. Previous functional history as elicited from patient: 77-year-old right-handed white female who is lives in one floor home alone. Retired. Describes independent with own cooking, laundry, driving, standing shower and gait without device. PCP is nurse practitioner in Dr. Rose office. Denies tobacco or alcohol. Review of Systems Review of systems: ENT: Denies sneezes or discharge. Eyes: Denies discharge or photophobia. Cardiac: Denies chest pain or palpitation. Pulmonary: Denies cough or shortness of breath. Breast: Denies discharge or lumps. Gastrointestinal: Denies nausea, emesis, constipation, diarrhea. Genitourinary: Denies discharge or frequency. Musculoskeletal: Right hip discomfort controlled with pain medication. Neurologic: Denies motor or sensory change. Endocrine: Denies shakes or sweats. Oncology: Denies cancers. Dermatologic: Denies rash, itching, pruritus. ALLERGY/immunology: Denies sneezes, rashes. Past Medical History Past Medical History: Blood Disorder, Diabetes Mellitus, Hyperlipidemia, Hypertension, Osteoarthritis (OA), Thyroid Disorder Additional Past Medical History / Comment(s): ANEMIA. History of Any Multi-Drug Resistant Organisms: None Reported Past Surgical History: Appendectomy, Bowel Resection, Hysterectomy Additional Past Surgical History / Comment(s): bowel tumor removed. Past Anesthesia/Blood Transfusion Reactions: No Reported Reaction Past Psychological History: No Psychological Hx Reported Smoking Status: Never smoker Past Alcohol Use History: None Reported Past Drug Use History: None Reported - Past Family History Mother Additional Family Medical History / Comment(s): mom from etoh and heart problems at age 35 Father Additional Family Medical History / Comment(s): at age 60 from [place] Medications and Allergies Home Medications Medication Instructions Recorded Confirmed Type Cyanocobalamin (Vitamin B-12) 1,000 mcg PO DAILY 12/17/17 07/06/22 History [Vitamin B-12] Esomeprazole Magnesium 40 mg PO DAILY 12/17/17 07/06/22 History Ezetimibe [Zetia] 10 mg PO DAILY 12/17/17 07/06/22 History Glimepiride [Amaryl] 8 mg PO AC-BRKFST 12/17/17 07/06/22 History Vitamin E (Dl,Tocopheryl Acet) 400 unit PO DAILY 12/17/17 07/06/22 History [Vitamin E] Vits A,C,E/Lutein/Minerals 1 tab PO DAILY 12/17/17 07/06/22 History [Ocuvite with Lutein Tablet] amLODIPine [Norvasc] 5 mg PO DAILY 12/17/17 07/06/22 History metFORMIN HCL [Glucophage] 500 mg PO QID 12/17/17 07/06/22 History Aspirin [Adult Low Dose Aspirin EC] 81 mg PO DAILY 01/06/21 07/06/22 History Ferrous Sulfate [Iron (65 MG 325 mg PO BID 01/06/21 07/06/22 History Elemental)] Insulin Glargine [Lantus] 10 units SQ DAILY 01/06/21 07/06/22 History Cinacalcet [Sensipar] 30 mg PO SUWE 07/06/22 07/06/22 History Fish Oil/Dha/Epa [Fish Oil 1,200 1 cap PO DAILY 07/06/22 07/06/22 History mg Fish Oil] Gabapentin 300 mg PO BID 07/06/22 07/06/22 History Glucosamine/Chondr Browne A Sod [Osteo 1 tab PO BID 07/06/22 07/06/22 History Bi-Flex Caplet] Hydroxychloroquine Sulfate 400 mg PO DAILY 07/06/22 07/06/22 History Insulin Lispro [humaLOG Kwikpen] See Protocol SQ DIRECTED 07/06/22 07/06/22 History Levothyroxine Sodium [Synthroid] 50 mcg PO DAILY 07/06/22 07/06/22 History Magnesium Oxide 400 mg PO BID 07/06/22 07/06/22 History Neuriva 1 cap PO DAILY 07/06/22 07/06/22 History Nystatin 100,000 Unit/ml Susp 4 ml PO QID 07/06/22 07/06/22 History [Mycostatin Oral Susp] lisinopriL [Zestril] 10 mg PO DAILY 07/06/22 07/06/22 History predniSONE 2 mg PO DAILY 07/06/22 07/06/22 History sitaGLIPtin [Januvia] 50 mg PO DAILY 07/06/22 07/06/22 History traMADol HCL 50 mg PO DAILY 07/06/22 07/06/22 History Allergies Allergy/AdvReac Type Severity Reaction Status Date / Time ragweed pollen Allergy Mild Unknown Verified 07/06/22 11:12 cat dander Allergy Unknown Verified 07/06/22 11:12 shellfish derived [Shellfish] Allergy Itching Verified 07/06/22 11:12 tree and shrub pollen Allergy Unknown Verified 07/06/22 11:12 Physical Exam Vitals: Vital Signs Temp Pulse Resp BP Pulse Ox 07/09/22 04:51 98.6 F 85 16 110/49 94 L 07/08/22 19:58 98.2 F 90 16 123/70 97 07/08/22 19:50 16 07/08/22 11:45 98.7 F 85 16 124/70 95 07/08/22 08:28 89 125/69 Intake and Output 07/08/22 07/08/22 07/09/22 14:59 22:59 06:59 Other: Voiding Method Toilet Toilet Bedside Commode Bedside Commode # Voids 1 1 # Bowel Movements 1 Skin: Atrophic, intact. General: Medium build and comfortable appearance. Head: Normocephalic, atraumatic. Eyes: Symmetric. Pupils equal round. Ears: Symmetric. Hearing within normal limits. Mouth: Clear. Neck: Supple. Carotid without bruit. Cardiac: Regular rate and rhythm. Lungs: Clear anteriorly and posteriorly. Abdomen: Soft active nontender. Extremities: Normal tone. Right hip clean and bandaged laterally. Neurological: Mental status: Alert, cooperative, pleasant. Cranial nerves: Symmetric facial tone and trapezius. Motor: Normal strength and isolation both arms and left leg. Active movement right ankle and toes. Giveaway weakness right hip and leg. Sensation: Intact throughout. DTRs: Symmetric and equal throughout. Mobility: Did not attempt to sit or stand this early a.m. Results CBC & Chem 7: 07/08/22 18:11 07/06/22 08:42 Labs: Abnormal Lab Results - Last 24 Hours (Table) 07/08/22 07/08/22 07/08/22 Range/Units 07:08 11:12 17:13 WBC (3.8-10.6) k/uL RBC (3.80-5.40) m/uL Hgb (11.4-16.0) gm/dL Hct (34.0-46.0) % Neutrophils # (1.3-7.7) k/uL POC Glucose (mg/dL) 257 H 176 H 215 H (70-110) mg/dL 07/08/22 07/08/22 Range/Units 18:11 20:20 WBC 11.1 H (3.8-10.6) k/uL RBC 2.96 L (3.80-5.40) m/uL Hgb 9.0 L D (11.4-16.0) gm/dL Hct 27.2 L (34.0-46.0) % Neutrophils # 8.4 H (1.3-7.7) k/uL POC Glucose (mg/dL) 201 H (70-110) mg/dL Assessment and Plan (1) Fracture of femoral neck, right Current Visit: Yes Status: Acute Code(s): S72.001A - FRACTURE OF UNSP PART OF NECK OF RIGHT FEMUR, INIT SNOMED Code(s): 2036699 Plan: Comments and plan: At this time patient discusses that she prefers discharge to [facility]. Would appear to be a good subacute rehab candidate.
[2022-07-09] MEDS: LEVOTHYROXINE 50 MCG TAB PO SCH (05:53)
[2022-07-09 07:26] LABS: Glucose,Whole Blood 123 mg/dL (70-110)
[2022-07-09] MEDS: INSULIN ASPART (NovoLOG) 100 UNIT/ML VIAL SQ SCH ×2 (07:42→13:17)
[2022-07-09] MEDS: INSULIN DETEMIR (LEVEMIR) 100 UNIT/ML SYR SQ SCH (09:23)
[2022-07-09] MEDS: amLODIPine 5 MG TAB PO SCH (09:23)
[2022-07-09] MEDS: CYANOCOBALAMIN 500 MCG TAB PO SCH (09:23)
[2022-07-09] MEDS: ASPIRIN 81 MG PO SCH (09:24)
[2022-07-09] MEDS: MAGNESIUM OXIDE 400 MG TAB PO SCH (09:24)
[2022-07-09] MEDS: LINAGLIPTIN 5 MG TABLET PO SCH (09:24)
[2022-07-09] MEDS: FERROUS SULFATE 325 MG TAB PO SCH (09:24)
[2022-07-09] MEDS: EZETIMIBE 10 MG TAB PO SCH (09:24)
[2022-07-09] MEDS: GLIMEPIRIDE 4 MG TAB PO SCH (09:24)
[2022-07-09] MEDS: predniSONE 1 MG TAB PO SCH (09:24)
[2022-07-09] MEDS: VITAMIN E (DL,TOCOPHERYL ACET) 400 UNIT (180 MG) CAP PO SCH (09:24)
[2022-07-09] MEDS: GABAPENTIN 300 MG CAP PO SCH (09:24)
[2022-07-09] MEDS: ENOXAPARIN 40 MG/0.4 ML SYRINGE SQ SCH (09:24)
[2022-07-09] MEDS: lisinopriL 10 MG TAB PO SCH (09:24)
[2022-07-09] MEDS: VIT A,C & E-LUTEIN-MINERALS 1 EACH TAB PO SCH (09:24)
[2022-07-09] MEDS: PANTOPRAZOLE 40 MG TABLET PO SCH (09:24)
[2022-07-09] MEDS: metFORMIN 500 MG TAB PO SCH (09:25)
[2022-07-09] MEDS: HYDROXYCHLOROQUINE SULFATE 200 MG TAB PO SCH (09:25)
[2022-07-09 11:30] VITALS: BP 111/64; PULSE 91; TEMP 98
[2022-07-09 12:16] LABS: Glucose,Whole Blood 262 mg/dL (70-110)
--- NOTE | 2022-07-09 12:21 | P.PN ---
Subjective Progress Note Date: 07/09/22 Principal diagnosis: status post right total hip arthroplasty Patient evaluated at bedside, she is resting in her hospital bed. Pain is well controlled at this time. She denies any headaches, lightheadedness, chest pain or shortness of breath. Objective - Vital Signs Vital signs: Vital Signs Temp 98.0 F 07/09/22 11:10 Pulse 91 07/09/22 11:10 Resp 16 07/09/22 11:10 BP 111/64 07/09/22 11:10 Pulse Ox 97 07/09/22 11:10 FiO2 Intake & Output 07/08/22 07/09/22 07/09/22 18:59 06:59 18:59 Intake Total 600 Balance 600 Intake: Oral 600 Other: Voiding Method Toilet Toilet Toilet Bedside Commode Bedside Commode Bedside Commode # Voids 1 2 # Bowel Movements 1 - Exam Right lower extremity: Incision is clean, dry, and intact. The exofin fusion tape is in good condition. There is minimal soft tissue swelling and ecchymosis surrounding the medial and lateral aspects of the incision. Calf is soft, no tenderness with palpation. Plantar flexion, dorsiflexion, EHL, FHL are intact. Sensory exam to light touch throughout the extremity is intact, dorsal pedis pulses 2+. - Labs CBC & Chem 7: 07/08/22 18:11 07/06/22 08:42 Labs: Abnormal Lab Results - Last 24 Hours (Table) 07/08/22 07/08/22 07/08/22 Range/Units 17:13 18:11 20:20 WBC 11.1 H (3.8-10.6) k/uL RBC 2.96 L (3.80-5.40) m/uL Hgb 9.0 L D (11.4-16.0) gm/dL Hct 27.2 L (34.0-46.0) % Neutrophils # 8.4 H (1.3-7.7) k/uL POC Glucose (mg/dL) 215 H 201 H (70-110) mg/dL 07/09/22 07/09/22 Range/Units 07:06 12:13 WBC (3.8-10.6) k/uL RBC (3.80-5.40) m/uL Hgb (11.4-16.0) gm/dL Hct (34.0-46.0) % Neutrophils # (1.3-7.7) k/uL POC Glucose (mg/dL) 123 H 262 H (70-110) mg/dL Assessment and Plan Assessment: Postoperative day #3 status post right total hip arthroplasty, right femoral neck fracture status post fall Plan: Pain control, continue with current medications DVT prophylaxis, continue current medications Dressing instructions, continue to monitor Weight-bear as tolerated, utilize walker at all times PT/OT Current incentive spirometer Other medical concierge recommendations Discharge planning: subacute rehab discharge on 07/09/2022, waiting on insurance authorization Time with Patient: Less than 30
--- NOTE | 2022-07-09 14:39 | P.DS ---
Providers Date of admission: 07/06/22 09:26 Expected date of discharge: 07/09/22 Attending physician: Aries Flor Consults: 07/06/22 09:26 Consult Physician Urgent Consulting Provider: Alex Trevizo Consult Reason/Comments: Medical clearance Do you want consulting provider notified?: Yes 07/08/22 14:13 Consult Physician Routine Consulting Provider: Andrew Adams Consult Reason/Comments: [facility] rehab Do you want consulting provider notified?: Yes Primary care physician: [facility] Course: Date of admission: 07/06/2022 Date of discharge: 07/09/2022 Admission diagnosis: Displaced right femoral neck fracture Discharge diagnosis: Status post right total hip arthroplasty Attending physician: Dr. Flor Surgical procedures: Right total hip arthroplasty Brief history: Patient is a 77-year-old female who presented to [facility] on 07/06/2022 after falling and injuring her right hip. She was diagnosed right femoral neck fracture, R orthopedic service was consulted for the surgery. Patient was also evaluated by internal medicine. Patient underwent surgery on 07/06/2022. Hospital course: Details of patient's surgery can be found in operative report. Patient tolerated the procedure well and was subsequently transported to orthopedic floor. Patient's orthopeidc and medical care was provided daily. Patient had daily laboratory tests performed for evaluation of overall blood counts. Patient had daily physical therapy to include strengthening range of motion as well as education with walker ambulation. Patient was treated with Lovenox for their postoperative DVT prophylaxis during their inpatient stay. Patient was noted to have a relatively uneventful postoperative course. Patient reported satisfactory pain control with oral pain medications by postoperative day 0. Patient showed satisfactory progress with physical therapy. Patient moved steadily through the program and had no difficulty meeting the goals by postoperative day 3. Given patient's otherwise satisfactory course and having met physical therapy goals, plan is to discharge patient rehab on postoperative day 3. Discharge condition/disposition: Patient will be discharged rehab in stable condition. Discharge medications: Instructions are given on resumption of patient's normal daily medications per primary care recommendation, in addition patient will be prescribed [place] 7.5 mg/325 mg, Lovenox 40 mg, MiraLAX 17 g, Senna-S. Discharge instructions: 1. Wound care and infection precautions, keep incision dry and covered while showering, no lotions, creams, moisturizers. No soaking, tubs, pools, hottubs. Do not scrub over the incision. 2. Weight-bear as tolerated with walker / cane until follow-up. 3. Ice and elevate when necessary. Do not exceed 20 minutes per hour with ice pack. 4. Utilize compression sleeve until seen at first follow up appointment. 5. Visiting nursing care. 6. Home physical therapy 7. Pain meds and anticoagulants per prescription. 8. Pain medication has potential to cause constipation. Increase oral fluid and fiber intake. Contact primary care provider if you have not had a bowel movement within 48 hours after discharge 9. No anti-inflammatory medication until discussed at first post operative visit, this including Motrin, Aleve, Mobic, Diclofenac 10. Follow up in office at 2 weeks postop with Andrew Olguin PA-C/Matthew Horton 11. Follow up with your primary care doctor 7-10 days after discharge. 12. Contact [facility] with any questions, . Procedures: Right total hip arthroplasty Patient Condition at Discharge: Good Plan - Discharge Summary Discharge Rx Participant: No New Discharge Prescriptions: New HYDROcodone/APAP 7.5-325MG [[place] 7.5] 1 each PO Q6HR PRN #12 tab PRN Reason: Pain Sennosides/Docusate Sodium [Senna-S 8.6-50 mg Tablet] 1 each PO DAILY PRN #30 tablet PRN Reason: Constipation Enoxaparin [Lovenox] 40 mg SQ DAILY #25 each polyethylene glycoL 3350 [Miralax] 17 gm PO DAILY PRN #21 packet PRN Reason: Constipation No Action Vits A,C,E/Lutein/Minerals [Ocuvite with Lutein Tablet] 1 tab PO DAILY Vitamin E (Dl,Tocopheryl Acet) [Vitamin E] 400 unit PO DAILY Cyanocobalamin (Vitamin B-12) [Vitamin B-12] 1,000 mcg PO DAILY Glimepiride [Amaryl] 8 mg PO AC-BRKFST amLODIPine [Norvasc] 5 mg PO DAILY Esomeprazole Magnesium 40 mg PO DAILY metFORMIN HCL [Glucophage] 500 mg PO QID Ezetimibe [Zetia] 10 mg PO DAILY Insulin Glargine [Lantus] 10 units SQ DAILY Aspirin [Adult Low Dose Aspirin EC] 81 mg PO DAILY Neuriva 1 cap PO DAILY Cinacalcet [Sensipar] 30 mg PO SUWE Fish Oil/Dha/Epa [Fish Oil 1,200 mg Fish Oil] 1 cap PO DAILY Glucosamine/Chondr Browne A Sod [Osteo Bi-Flex Caplet] 1 tab PO BID Insulin Lispro [humaLOG Kwikpen] See Protocol SQ DIRECTED lisinopriL [Zestril] 10 mg PO DAILY predniSONE 2 mg PO DAILY Ferrous Sulfate [Iron (65 MG Elemental)] 325 mg PO BID Gabapentin 300 mg PO BID Hydroxychloroquine Sulfate 400 mg PO DAILY Levothyroxine Sodium [Synthroid] 50 mcg PO DAILY Magnesium Oxide 400 mg PO BID Nystatin 100,000 Unit/ml Susp [Mycostatin Oral Susp] 4 ml PO QID sitaGLIPtin [Januvia] 50 mg PO DAILY traMADol HCL 50 mg PO DAILY Discharge Medication List Cyanocobalamin (Vitamin B-12) [Vitamin B-12] 1,000 mcg PO DAILY 12/17/17 [History] Esomeprazole Magnesium 40 mg PO DAILY 12/17/17 [History] Ezetimibe [Zetia] 10 mg PO DAILY 12/17/17 [History] Glimepiride [Amaryl] 8 mg PO AC-BRKFST 12/17/17 [History] Vitamin E (Dl,Tocopheryl Acet) [Vitamin E] 400 unit PO DAILY 12/17/17 [History] Vits A,C,E/Lutein/Minerals [Ocuvite with Lutein Tablet] 1 tab PO DAILY 12/17/17 [History] amLODIPine [Norvasc] 5 mg PO DAILY 12/17/17 [History] metFORMIN HCL [Glucophage] 500 mg PO QID 12/17/17 [History] Aspirin [Adult Low Dose Aspirin EC] 81 mg PO DAILY 01/06/21 [History] Ferrous Sulfate [Iron (65 MG Elemental)] 325 mg PO BID 01/06/21 [History] Insulin Glargine [Lantus] 10 units SQ DAILY 01/06/21 [History] Cinacalcet [Sensipar] 30 mg PO SUWE 07/06/22 [History] Fish Oil/Dha/Epa [Fish Oil 1,200 mg Fish Oil] 1 cap PO DAILY 07/06/22 [History] Gabapentin 300 mg PO BID 07/06/22 [History] Glucosamine/Chondr Browne A Sod [Osteo Bi-Flex Caplet] 1 tab PO BID 07/06/22 [History] Hydroxychloroquine Sulfate 400 mg PO DAILY 07/06/22 [History] Insulin Lispro [humaLOG Kwikpen] See Protocol SQ DIRECTED 07/06/22 [History] Levothyroxine Sodium [Synthroid] 50 mcg PO DAILY 07/06/22 [History] Magnesium Oxide 400 mg PO BID 07/06/22 [History] Neuriva 1 cap PO DAILY 07/06/22 [History] Nystatin 100,000 Unit/ml Susp [Mycostatin Oral Susp] 4 ml PO QID 07/06/22 [History] lisinopriL [Zestril] 10 mg PO DAILY 07/06/22 [History] predniSONE 2 mg PO DAILY 07/06/22 [History] sitaGLIPtin [Januvia] 50 mg PO DAILY 07/06/22 [History] traMADol HCL 50 mg PO DAILY 07/06/22 [History] Enoxaparin [Lovenox] 40 mg SQ DAILY #25 each 07/09/22 [Rx] HYDROcodone/APAP 7.5-325MG [[place] 7.5] 1 each PO Q6HR PRN #12 tab 07/09/22 [Rx] Sennosides/Docusate Sodium [Senna-S 8.6-50 mg Tablet] 1 each PO DAILY PRN #30 tablet 07/09/22 [Rx] polyethylene glycoL 3350 [Miralax] 17 gm PO DAILY PRN #21 packet 07/09/22 [Rx] Follow up Appointment(s)/Referral(s): Bulmaro Rose MD [Primary Care Provider] - 1-2 days Matthew Leroy PAC [PHYSICIAN CAKE [employer]ER] - 2 Weeks Activity/Diet/Wound Care/Special Instructions: Orthopedic Discharge Instructions: 1. Wound care and infection precautions, keep incision dry and covered while showering, no lotions, creams, moisturizers. No soaking, pools, hot tubs. Do not scrub over incision. 2. Weight-bear as tolerated with walker / cane until follow-up. 3. Ice and elevate when necessary. Do not exceed 20 minutes per hour with ice pack. 4. Utilize compression sleeve until seen at first follow up appointment. 5. Pain meds and anticoagulants per prescription. 6. Pain medication has potential to cause constipation. Increase oral fluid and fiber intake. Contact primary care provider if you have not had a bowel movement within 48 hours after discharge. 7. No anti-inflammatory medication until discussed at first post operative v isit, this including Motrin, Aleve, Mobic, Diclofenac. 8. Follow up in office at 2 weeks postop with Andrew Olguin PA-C/Matthew Leroy PA-C 9. Follow up with your primary care doctor 7-10 days after discharge. 10. Contact [facility] with any questions, . Discharge Disposition: TRANSFER TO SNF/ECF
--- NOTE | 2022-07-09 17:18 | P.PN ---
Progress Note - Text Progress Note Date: 07/09/22 - Chief Complaint Fall Hospital course This is a pleasant 77-year-old patient, who follows with Dr. Rose. Chronic stable medical conditions include diabetes, hypertension, hyperlipidemia, osteomyelitis, hypothyroid. Patient was trying to avoid soup cans that should put on the bed in dropping in her feet resulting in a fall.. [place] in the right hip. Has a femoral neck fracture mildly impacted. Patient denies any cardiac history. Normally does half a treadmill. Able to walk well. No chest pain or shortness of breath. No palpitation. This was purely a mechanical fall. Patient's daughter at the bedside in the ER. 07/07/2022: Yesterday Dr. Flor candidate out a right total hip arthroplasty press-fit. Patient laying in bed. Pain control. Did tolerate some diet. Did sit up in a chair. No nausea vomiting. Otherwise comfortable. 07/08/2022: Resting in bed. Pain at the operative site. Oral intake fair. No other issues. Late rehab. 07/09/2022: Comfortable. Oral intake fair. No new issues. Doing rehab. Past medical history to include: Diabetes, hypertension, hyperlipidemia, osteomyelitis, hypothyroid, bowel tumor removed Social history: . Lives alone. No smoking or alcohol. Family history: Reviewed, noncontributory to presentation Physical examination: VITAL SIGNS: 98, 91, 16, 111/64, 97% room air GENERAL: Laying in bed, comfortable EYES: Pupils equal. Conjunctiva normal. HEENT: External appearance of nose and ears normal, oral cavity grossly normal. NECK: JVD not raised; masses not palpable. HEART: First and second heart sounds are normal; no edema. LUNGS: Respiratory rate normal; clear to auscultation. ABDOMEN: Soft, nontender, liver spleen not palpable, no masses palpable. PSYCH: Alert and oriented x3; mood and affect normal. MUSCULOSKELETAL:No Clubbing/cyanosis;muscles-grossly intact. Evidence of OA. Dressing over right hip incision INVESTIGATIONS, reviewed in the clinical context: July 2022: WBC 11.1 hemoglobin 9 platelets 264 White count 6.100 1112.1 platelets 339 potassium 4.2 creatinine 0.83 EKG tracing personally reviewed by me-normal sinus rhythm Chest x-ray film personally reviewed by me-mild cardiomegaly. Lungs clear X-ray hip: Right femur neck fracture Assessment and plan: -Right femur neck fracture mildly impacted, secondary to mechanical fall Right total hip arthroplasty press-fit by Dr. Flor on July 06. -Acute postprocedure blood loss anemia expected from surgery Add ferrous sulfate -Diabetes mellitus type 2 Resume Amaryl. Continue metformin, Trajenta.. Accu-Cheks with sliding scale. Diabetic diet. -GERD PPI -Essential hypertension Norvasc, Zestril -Hypercholesterolemia zetia -Hypothyroid Synthroid -Primary osteoarthritis multiple joints Pain medications as needed medications to continue. Discussed with patient. Add ferrous sulfate. Pending DC to rehab.
== END 2022-07-09 16:47 | DRG 522 ==
LOC: EC 08:29 → 4SSUR 09:26 → 5NMEDONC 13:48
PROVIDERS: ADMIT Orthopaedic Surgery; ATTEND Orthopaedic Surgery
PROC: 0SR902A Replacement of Right Hip Joint with Metal on Polyethylene Synthetic Substitute, Uncemented, Open Approach (ICD-10-PCS; principal; 2022-07-06 08:30)
DX: S72.011A Unspecified intracapsular fracture of right femur, initial encounter for closed fracture (principal); M86.9 Osteomyelitis, unspecified; D62 Acute posthemorrhagic anemia; E03.9 Hypothyroidism, unspecified; I10 Essential (primary) hypertension; E78.00 Pure hypercholesterolemia, unspecified; K21.9 Gastro-esophageal reflux disease without esophagitis; M15.9 Polyosteoarthritis, unspecified; E11.69 Type 2 diabetes mellitus with other specified complication; W01.0XXA Fall on same level from slipping, tripping and stumbling without subsequent striking against object, initial encounter; Y93.89 Activity, other specified; Y92.003 Bedroom of unspecified non-institutional (private) residence as the place of occurrence of the external cause; Z79.899 Other long term (current) drug therapy; Z79.890 Hormone replacement therapy; Z79.84 Long term (current) use of oral hypoglycemic drugs; Z79.82 Long term (current) use of aspirin; Z79.4 Long term (current) use of insulin; Z28.310 Unvaccinated for COVID-19
CPT/HCPCS: 36415; 51702; 64447; 71045; 73501; 73502; 76942; 80053; 85025; 85610; 85730; 88305; 88311; 93005; 96361; 96374; 96375; 99285

== ENCOUNTER → 2022-11-26 | Outpatient (CLI) | payer MEDICARE ==
[2022-11-26 15:41] LABS: WBC 7.36 X 10*3/uL (4.50-10.00)
[2022-11-26 15:42] LABS: Basophils # (A) 0.04 X 10*3/uL (0.00-0.10); Basophils % (A) 0.5 %; Eosinophils # (A) 0.16 X 10*3/uL (0.04-0.35); Eosinophils % (A) 2.2 %; HCT 39.2 % (37.2-46.3); HGB 12.6 g/dL (12.0-15.0); Immature Grans, Automated 0.4 %; Lymphocytes # (A) 1.98 X 10*3/uL (0.90-5.00); Lymphocytes % (A) 26.9 %; MCH 28.9 pg (27.0-32.0); MCHC 32.1 g/dL (32.0-37.0); MCV 89.9 fL (80.0-97.0); Mean Platelet Volume 10.7 fL (9.5-12.2); Monocytes # (A) 0.86 X 10*3/uL (0.20-1.00); Monocytes % (A) 11.7 %; NRBC Per 100 WBC 0 /100 WBCS (0.0-0.0); Neutrophils # (A) 4.29 X 10*3/uL (1.80-7.70); Neutrophils % (A) 58.3 %; Platelet Count 335 X 10*3/uL (140-440); RBC 4.36 X 10*6/uL (4.10-5.20); RDW 14.6 % (11.5-14.5)
[2022-11-26 16:04] LABS: African American GFR (CKD) 55.7 (60.0-200.0); Anion Gap 15.1 mmol/L (10.00-18.00); BUN/Creat Ratio 15.09 Ratio (12.00-20.00); Blood Urea Nitrogen 16.6 mg/dL (9.0-27.0); Calcium 10.4 mg/dL (8.7-10.3); Carbon Dioxide 21.9 mmol/L (20.0-27.5); Potassium 5.8 mmol/L (3.5-5.5)
== END | disposition home or self-care (01) ==
LOC: LABPAT 11:21
PROVIDERS: ATTEND Orthopaedic Surgery
DX: Z01.812 Encounter for preprocedural laboratory examination (principal); Z22.322 Carrier or suspected carrier of Methicillin resistant Staphylococcus aureus; M17.11 Unilateral primary osteoarthritis, right knee
CPT/HCPCS: 80048; 85025; 87070

== ENCOUNTER 2022-12-11 08:28 | Day surgery (SDC) | payer MEDICARE, BC ==
--- NOTE | 2022-12-10 08:59 | P.HPOR ---
History of Present Illness H&P Date: 12/10/22 Chief Complaint: Right knee pain The patient is a 77-year-old female presents with progressive right knee pain for the past several years worsening over the past 4 months. She notes lateral pain and swelling. She has a difficult time with walking and getting up from a seated position. She has locking and buckling. She's had previous injections along with trying medications without much relief. She notes significant night symptoms. She is quite limited because of pain. Past Medical History Past Medical History: Blood Disorder, Diabetes Mellitus, Hyperlipidemia, Hypertension, Osteoarthritis (OA), Renal Disease, Thyroid Disorder Additional Past Medical History / Comment(s): ANEMIA. History of Any Multi-Drug Resistant Organisms: None Reported Past Surgical History: Appendectomy, Bowel Resection, Hysterectomy Additional Past Surgical History / Comment(s): bowel tumor removed. Right total hip arthroplasty for fracture. Past Anesthesia/Blood Transfusion Reactions: No Reported Reaction Past Psychological History: No Psychological Hx Reported Smoking Status: Never smoker Past Alcohol Use History: None Reported Past Drug Use History: None Reported - Past Family History Mother Additional Family Medical History / Comment(s): mom from etoh and heart problems at age 35 Father Additional Family Medical History / Comment(s): at age 60 from [place] Medications and Allergies Home Medications Medication Instructions Recorded Confirmed Type Cyanocobalamin (Vitamin B-12) 1,000 mcg PO DAILY 12/17/17 07/06/22 History [Vitamin B-12] Esomeprazole Magnesium 40 mg PO DAILY 12/17/17 07/06/22 History Ezetimibe [Zetia] 10 mg PO DAILY 12/17/17 07/06/22 History Glimepiride [Amaryl] 8 mg PO AC-BRKFST 12/17/17 07/06/22 History Vitamin E (Dl,Tocopheryl Acet) 400 unit PO DAILY 12/17/17 07/06/22 History [Vitamin E (400 Iu = 180 mg)] Vits A,C,E/Lutein/Minerals 1 tab PO DAILY 12/17/17 07/06/22 History [Ocuvite with Lutein Tablet] amLODIPine [Norvasc] 5 mg PO DAILY 12/17/17 07/06/22 History metFORMIN HCL [Glucophage] 500 mg PO QID 12/17/17 07/06/22 History Aspirin [Adult Low Dose Aspirin EC] 81 mg PO DAILY 01/06/21 07/06/22 History Ferrous Sulfate [Iron (65 MG 325 mg PO BID 01/06/21 07/06/22 History Elemental)] Insulin Glargine [Lantus Vial] 10 units SQ DAILY 01/06/21 07/06/22 History Cinacalcet [Sensipar] 30 mg PO SUWE 07/06/22 07/06/22 History Fish Oil/Dha/Epa [Fish Oil 1,200 1 cap PO DAILY 07/06/22 07/06/22 History mg Fish Oil] Glucosamine/Chondr [place] A Sod [Osteo 1 tab PO BID 07/06/22 07/06/22 History Bi-Flex Caplet] Hydroxychloroquine Sulfate 400 mg PO DAILY 07/06/22 07/06/22 History Insulin Lispro [humaLOG Kwikpen] See Protocol SQ DIRECTED 07/06/22 07/06/22 History Levothyroxine Sodium [Synthroid] 50 mcg PO DAILY 07/06/22 07/06/22 History Magnesium Oxide 400 mg PO BID 07/06/22 07/06/22 History Neuriva 1 cap PO DAILY 07/06/22 07/06/22 History Nystatin 100,000 Unit/ml Susp 4 ml PO QID 07/06/22 07/06/22 History [Mycostatin Oral Susp] predniSONE 2 mg PO DAILY 07/06/22 07/06/22 History sitaGLIPtin [Januvia] 50 mg PO DAILY 07/06/22 07/06/22 History Enoxaparin [Lovenox] 40 mg SQ DAILY #25 each 07/09/22 Rx Ferrous Sulfate [Feosol] 325 mg PO BID #1 tab 07/09/22 Rx HYDROcodone/APAP 7.5-325MG [[place] 1 each PO Q6HR PRN #12 tab 07/09/22 Rx 7.5] Sennosides/Docusate Sodium 1 each PO DAILY PRN #30 tablet 07/09/22 Rx [Senna-S 8.6-50 mg Tablet] lisinopriL [Zestril] 10 mg PO HS #0 07/09/22 07/06/22 Rx polyethylene glycoL 3350 [Miralax] 17 gm PO DAILY PRN #21 packet 07/09/22 Rx Allergies Allergy/AdvReac Type Severity Reaction Status Date / Time ragweed pollen Allergy Mild Unknown Verified 07/06/22 11:12 cat dander Allergy Unknown Verified 07/06/22 11:12 shellfish derived [Shellfish] Allergy Itching Verified 07/06/22 11:12 tree and shrub pollen Allergy Unknown Verified 07/06/22 11:12 Physical Examination - Knee right Appearance: effusion Effusion grade: grade 1 Valgus alignment in stance: 10 degrees Tenderness with palpation: anterior, lateral Pain: throughout ROM Gait: limping ROM: extension: -10 degrees ROM: flexion: 100 degrees Crepitus with motion: Yes Strength: extension: 5/5 Strength: flexion: 5/5 Stability exam: medial: grade 2 Meniscal tests: lateral meniscal tests: positive, lateral joint line pain: positive Results The patient is a well-developed well-nourished female proximally 5 foot 4, 176 pounds of in the more fit habitus. HEENT exam is nonfocal, neck is supple. She has painless passive motion of the right hip. Straight leg raise is negative. Her distal neurovascular appears intact in the right lower extremity. - Diagnostic results Knee x-ray: image reviewed (3 views of the right knee obtained in the office sh ow severe lateral compartment osteoarthrosis with subchondral sclerosis and [id number] changes.) Assessment and Plan Assessment: Right knee severe lateral compartment osteoarthrosis History of right total hip arthroplasty Plan: I talked to the patient length regarding her condition along with treatment options. At this point she is quite limited because of pain related to her right knee osteoarthrosis despite previous conservative measures. After thorough discussion she opted to proceed with surgery. We'll proceed with right total knee arthroplasty. We will institute DVT prophylaxis postoperatively. Risks and benefits were discussed at length in layman's terms.
[~2022-12-11 08:28] MED LIST: ACETAMINOPHEN TAB 500 MG TAB PO PRN; DEXAMETHASONE SOD PHOSPHATE 4 MG/ML 1 ML VIAL IV ONE; HYDROmorphone 0.5 MG/0.5 ML SYRINGE IVP PRN; LIDOCAINE 1% (10MG/ML) FOR IV START INTRADERMA PRN; MELOXICAM 7.5 MG TAB PO PRN; MIDAZOLAM 2 MG/2 ML VIAL IV PRN; ONDANSETRON 4 MG/2 ML VIAL IVP ONE; TRANEXAMIC ACID IN NACL,ISO-OS 1,000 MG in SALINE 1 100ML.BAG IVPB PRN
[2022-12-11] MEDS ORDERED: LACTATED RINGERS 1,000 ML IV ONE ×2 (09:00→11:39)
[2022-12-11 09:19] LABS: Glucose,Whole Blood 173 mg/dL (70-110)
[2022-12-11] MEDS ORDERED: MIDAZOLAM 2 MG/2 ML VIAL IVP ONE (09:46)
[2022-12-11] MEDS ORDERED: INSULIN ASPART (NovoLOG) 100 UNIT/ML VIAL SQ ONE (10:00)
[2022-12-11] MEDS ORDERED: SODIUM CHLORIDE 0.9% (PF) 10 ML VIAL ONE (10:01)
[2022-12-11] MEDS ORDERED: PHENYLEPHRINE-0.9% NACL SYG 1,000 MCG/10 ML SYRINGE ONE (10:01)
[2022-12-11] MEDS ORDERED: TRANEXAMIC ACID IN NACL,ISO-OS 1,000 MG/100 ML BAG ONE (10:01)
[2022-12-11] MEDS ORDERED: fentaNYL (PF) 50 MCG/ML 2 ML AMP ONE (10:01)
[2022-12-11] MEDS ORDERED: MIDAZOLAM 2 MG/2 ML VIAL ONE (10:01)
[2022-12-11] MEDS ORDERED: GLYCOPYRROLATE 0.2 MG/ML 2 ML VIAL ONE (10:01)
[2022-12-11] MEDS ORDERED: KETAMINE 10 MG/ML 20 ML VIAL ONE (10:01)
[2022-12-11] MEDS ORDERED: ROPIVACAINE 5 MG/ML 30 ML VIAL ONE (10:01)
[2022-12-11] MEDS ORDERED: PROPOFOL 10 MG/ML 20 ML VIAL IV ONE (10:01)
[2022-12-11] MEDS ORDERED: ceFAZolin 1,000 MG in SODIUM CHLORIDE 0.9% 1,000 ML IRRIGATION ONE (10:38)
[2022-12-11 11:11] LABS: Glucose,Whole Blood 155 mg/dL (70-110)
[2022-12-11] MEDS ORDERED: HYDROmorphone 0.5 MG/0.5 ML SYRINGE IVP PRN (11:53)
[2022-12-11] MEDS ORDERED: NALOXONE 0.4 MG/ML 1 ML VIAL IV PRN (11:53)
[2022-12-11] MEDS ORDERED: HYDROcodone/APAP 5-325MG 1 EACH TAB PO PRN (11:53)
[2022-12-11] MEDS ORDERED: MAGNESIUM HYDROXIDE 2,400 MG/10 ML CUP PO PRN (11:53)
[2022-12-11 12:15] LABS: Glucose,Whole Blood 104 mg/dL (70-110)
--- NOTE | 2022-12-11 12:17 | P.OP ---
Date of Procedure: 12/11/22 Preoperative Diagnosis: Right knee severe tricompartmental osteoarthrosis Postoperative Diagnosis: Same Procedure(s) Performed: Right total knee arthroplastycementedposterior stabilized Implants: Depuy Attune size 5 narrow cemented femoral component, size 4 tibial component, 12 mm articular surface, 32 mm cemented patellar component. This is a posterior stabilized implant. Anesthesia: regional, spinal Surgeon: Aries Flor Stereoplotter Operator #1: Matthew Leroy Estimated Blood Loss (ml): 50 Pathology: other (Bone fragments) Condition: stable Disposition: PACU Indications for Procedure: The patient's a 77-year-old female who presents with progressive right knee pain secondary [place] arthrosis despite conservative measures. A discussion of the risks and benefits of operative intervention versus continued conservative measures was made with the patient. She opted to proceed with surgery. Operative risks to include infection, neurovascular injury, development of blood clots, fracture, possible component loosening/failure and need for subsequent procedures was discussed. Informed consent was obtained. Operative Findings: As below Description of Procedure: The patient was brought to the operating room, and after induction of spinal anesthesia the right lower extremity was prepped and draped in a normal fashion. The tourniquet was inflated to 270 mm marker. A longitudinal incision extending 3 finger breaths above the superior pole of patella extending to the medial aspect the tibial tubercle was then made. The skin and subcutaneous tissues were divided sharply. Electrocautery was used for hemostasis. A medial parapatellar arthrotomy was performed. The medial soft tissues to include the superficial and deep portions of the medial collateral ligament were elevated subperiosteally. The lateral collateral and popliteus were elevated subperiosteally off the lateral femoral epicondyle. The patella was everted. A portion of the retropatellar fat pad was excised sharply. The anterior cruciate ligament was sacrificed. Blunt retractors were placed. A starting hole was made in the distal femur 1 cm anterior to the posterior cruciate ligament or igin. An intramedullary femoral guide was then inserted planning on 5 valgus distal cut with 9 mm distal resection. The cutting block was pinned in place. The distal cut was then made. The posterior referencing sizing guide was utilized. I felt size 5 narrow was most appropriate. 3 of external rotation was built into the system and verified off the trans-epicondylar axis and the posterior condyles. The cutting block was pinned in place. The anterior, posterior, and chamfer cuts then made. Bone fragments were removed. The intercondylar guide was placed and the notch cut was made with a sagittal saw. The bone block was removed in one fragment. The trial component was then placed. There is good anterior to posterior and medial to lateral fit. The distal peg holes were drilled. The trial component was removed. Attention was then paid towards preparing the proximal tibia. An extra medullary guide was utilized in line with the tibial shaft and second metatarsal distally. I planned on 6 mm resection from the medial compartment. The cutting block was pinned in place. The proximal tibial cut was then made. The bone was removed in one fragment. The remnants of the medial and lateral menisci were excised at the capsular junction with electrocautery. The tibia sized most appropriately at size 4. The trial femoral and tibial components were placed along with a 12 mm articular surface. I was able to obtain full flexion and extension with internal and external rotation. After several flexion and extension cycles, the tibial rotation was marked with electrocautery line with the medial one third of the tibial tubercle. Attention was then paid towards preparing the patella. A patella reamer was utilized taking stem to 14 mm of bone stock. A good flush cut was made. The patella sized most appropriately 32 mm. The peg holes were drilled. The trial components placed. I had good patellofemoral tracking with no hands technique. The trial components were then removed. The tibia was prepared in the appropriate rotation with appropriate drill and keel punch. The posterior osteophytes were removed with a curved osteotome. The flexion and extension gaps were checked and felt to be symmetric at 12 mm. A trial components were then removed. The bony surfaces were prepared with pulsatile lavage and dried. The tibial component was then cemented place was fully seated. Excess cement was removed. The femoral component cemented place and was fully seated. Excess cement was removed. The trial 12 mm articular surface was placed and the knee was put in full extension. The patella component was cemented place. After the cement had sufficiently hardened, the knee was again taken through a range of motion. Again I was able to obtain full flexion and extension with varus and valgus stress. The trial 12 mm articular surface was removed and the final one inserted. This was fully seated. Care was taken to avoid any soft tissue interposition. Pulsatile lavage was again utilized. The medial parapatellar arthrotomy was closed with #2 Ethibond suture. The tourniquet was deflated with approximately 65 minutes total tourniquet time. F inal hemostasis was obtained with the cautery. There was minimal bleeding therefore a deep drain was not placed. The subcutaneous tissues were reapproximated with interrupted 2-0 Vicryl sutures. The skin was reapproximated with 3-0 subcuticular strata fix suture. Skin tape and adhesive was applied. A sterile dressing was applied. The patient was awoken from sedation and transferred to recovery room in good condition. Blood loss was estimated at 50 mL. No complications were incurred. Sponge and needle counts were correct at the end of the case. Matthew WHITE assisted during the major components of this case to include exposure, bone resection, implantation, and closure.
[2022-12-11] MEDS ORDERED: ROPIVACAINE 1,100 MG, SODIUM CHLORIDE 0.9% 500 ML 330 ML, EMPTY PAIN BALL 1 EACH MISCELLANE PRN ×2 (12:25)
--- NOTE | 2022-12-11 12:49 | XR ---
EXAMINATION TYPE: XR knee limited RT DATE OF EXAM: 12/11/2022 12:40 PM INDICATION: Patient age:Female; 77 years old; Reason for study: Evaluation for Postop abnormality and alignment; PHH. COMPARISON: Right knee radiograph 10/25/2022 TECHNIQUE: The Right knee(s) was examined in frontal and crosstable lateral projections. FINDINGS: Post surgical changes from right total knee arthroplasty with distal femoral and proximal tibial components. Hardware appears intact with appropriate alignment. There is associated soft tissu e edema and gas. No acute fracture or dislocation. Vascular sclerosis. IMPRESSION: Postsurgical changes from right total knee arthroplasty. Hardware appears intact with appropriate ali gnment.
[2022-12-11] MEDS: LACTATED RINGERS 1,000 ML IV SCH (13:00)
[2022-12-11] MEDS: HYDROcodone/APAP 7.5-325MG 1 EACH TAB PO PRN ×2 (14:28→20:01)
[2022-12-11] MEDS ORDERED: DEXTROSE 50% SYRINGE 50 ML IVP PRN ×2 (15:54)
[2022-12-11 16:50] LABS: Glucose,Whole Blood 270 mg/dL (70-110)
[2022-12-11 17:02] LABS: Prothrombin Time 10.5 sec (9.0-12.0)
[2022-12-11] MEDS: metFORMIN 500 MG TAB PO SCH ×2 (17:29→21:28)
[2022-12-11] MEDS: INSULIN ASPART (NovoLOG) 100 UNIT/ML VIAL SQ SCH ×2 (17:29→21:28)
[2022-12-11 19:47] LABS: Glucose,Whole Blood 307 mg/dL (70-110)
[2022-12-11] MEDS: HYDROmorphone 0.5 MG/0.5 ML SYRINGE IVP PRN ×2 (20:03→23:37)
[2022-12-11] MEDS: MAGNESIUM OXIDE 400 MG TAB PO SCH (21:28)
[2022-12-11] MEDS: GABAPENTIN 300 MG CAP PO SCH (21:28)
[2022-12-11] MEDS: SENNOSIDES-DOCUSATE SODIUM 1 EACH TAB PO SCH (21:28)
--- NOTE | 2022-12-12 00:20 | CONS ---
CONSULTATION REASON FOR CONSULTATION: Advice regarding diabetes mellitus and other medical issues requested by orthopedic surgery. HISTORY OF PRESENT ILLNESS: This is a 77-year-old woman with a past medical history of multiple medical issues, diabetes mellitus, hypertension who underwent a right total knee arthroplasty. There is no history of any fever, rigors, or chills. No history of headache or loss of consciousness. PAST MEDICAL HISTORY: Reviewed, include diabetes mellitus, hypertension, and hyperlipidemia, rest of the history and rest of the chart is also reviewed. HOME MEDICATIONS: Ultram, rest of the medications and doses are reviewed. ALLERGIES: Reviewed include pollen, rest of the allergies reviewed. FAMILY HISTORY: History of myocardial infarction. SOCIAL HISTORY: No history of smoking or alcohol intake. REVIEW OF SYSTEMS: A 14-point review is negative except as mentioned earlier. PHYSICAL EXAMINATION: VITAL SIGNS: Pulse is 61, blood pressure 120/60, respirations 16. HEENT: Conjunctivae normal. NECK: No jugular venous distention. CARDIOVASCULAR: S1, S2 muffled. RESPIRATIONS: Diminished at the bases. No rhonchi, no crackles. ABDOMEN: Soft, nontender. LEGS: No edema, no swelling. NERVOUS SYSTEM: No focal deficits. LABORATORY DATA: Reviewed. ASSESSMENT: 1. Status post right total knee arthroplasty. 2. Diabetes mellitus, type 2. 3. Hypertension. 4. Hyperlipidemia. 5. Multiple medical issues. RECOMMENDATIONS AND DISCUSSION: This 77-year-old woman presented with multiple medical issues, we will monitor the patient closely. Continue the current medications. Resume the home medication. Monitor blood sugars closely. DVT prophylaxis. Incentive spirometry. We will follow the patient closely with you. May be asked to follow up with the primary physician closely after discharge. MMODL / IJN: [id number] /
[2022-12-12] MEDS: HYDROcodone/APAP 7.5-325MG 1 EACH TAB PO PRN ×4 (02:22→21:05)
[2022-12-12 06:19] LABS: Glucose,Whole Blood 245 mg/dL (70-110)
[2022-12-12] MEDS: LACTATED RINGERS 1,000 ML IV SCH (06:34)
[2022-12-12] MEDS: GLIMEPIRIDE 4 MG TAB PO SCH (06:53)
[2022-12-12] MEDS: INSULIN ASPART (NovoLOG) 100 UNIT/ML VIAL SQ SCH ×4 (06:54→21:04)
[2022-12-12] MEDS: HYDROmorphone 0.5 MG/0.5 ML SYRINGE IVP PRN ×3 (06:54→23:08)
--- NOTE | 2022-12-12 07:00 | P.PN ---
Progress Note - Text Progress Note Date: 12/12/22 Anesthesia progress note: POD#[address] knee [address] Dr[address] Flor. Adductor canac nerve block catheter in place. Patient states pain is 6/10 with numbness over the anterior aspect of the knee from the nerve block. Patient denies headache, lightheadeness, dizziness, ringing in ears or numbness in the mouth.
[2022-12-12] MEDS ORDERED: INSULIN DETEMIR (LEVEMIR) 100 UNIT/ML SYR SQ SCH (09:00)
[2022-12-12] MEDS ORDERED: NON FORMULARY DRUG (Esomeprazole Magnesium [Esomeprazole Magnesium] 40 MG Capsule.Dr) PO SCH (09:00)
--- NOTE | 2022-12-12 09:30 | P.PN ---
Subjective Progress Note Date: 12/12/22 Principal diagnosis: Right knee osteoarthritis Patient was seen at bedside this morning sitting up in chair with legs elevated. Dressing over right knee at this time. Patient saysthe pain she is having is at the back of her right leg. Patient says she has been up walking and has use the restroom where she said she has urinated several times since surgery. Patient says she has been passing gas, however, patient says she has not had bowel movement yet. Patient says she has been using incentive spirometer. Patient says physical therapy has not been by at this morning. Patient says she is looking forward to working with physical therapy earlier this morning. Patient says she does have a walker and cane for home. Patient says that her daughter will be able help her out at home. Patient denies chest pain, fever, shortness breath, nausea, vomiting, change in vision, loss of bowel/bladder control. Objective - Vital Signs Vital signs: Vital Signs Temp 97.8 F 12/12/22 07:10 Pulse 72 12/12/22 07:10 Resp 19 12/12/22 07:10 BP 144/72 12/12/22 07:10 Pulse Ox 98 12/12/22 08:28 FiO2 Intake & Output 12/11/22 12/12/22 12/12/22 18:59 06:59 18:59 Intake Total 204 20 240 Output Total 50 Balance 1990 240 Weight 76.7 kg Intake: IV 1351 20 Invasive Line 2 20 Intake, IV Titration 210 Amount Lactated Ringers 1,000 ml 160 @ 20 mls/hr IV .Q24H [facility] Rx#:[id number] ceFAZolin 2 gm In Sodium 50 Chloride 0.9% 50 ml @ 100 mls/hr IVPB Q8H [facility] Rx#: [id number] Oral 480 240 Output: Estimated Blood Loss 50 Other: Voiding Method Toilet # Voids 1 2 - Exam Right knee: Incision is clean, dry, and intact. The exofin fusion tape is in good condition. There is minimal soft tissue swelling and ecchymosis surrounding the medial and lateral aspects of the incision. Calf is soft, no tenderness with palpation. Plantar flexion, dorsiflexion, EHL, FHL are intact. Sensory exam to light touch throughout the extremity is intact, dorsal pedis pulses 2+. - Labs Labs: Abnormal Lab Results - Last 24 Hours (Table) 12/11/22 12/11/22 12/11/22 Range/Units 11:09 16:49 19:46 POC Glucose (mg/dL) 155 H 270 H 307 H (70-110) mg/dL 12/12/22 Range/Units 06:17 POC Glucose (mg/dL) 245 H (70-110) mg/dL Assessment and Plan Assessment: 1. Right knee osteoarthritis - Postoperative day 1 status post right total knee arthroplasty Plan: 1. Right knee osteoarthritis - right total knee arthroplasty performed yesterday, 12/11/2022. Patient stable at bedside this morning. We'll keep patient 1 more night for pain control and plan discharge home tomorrow with health services. 2. Appreciate medical management 3. Pain management - [place]; gabapentin; add Flexeril 10 mg at bedtime 4. DVT prophylaxis - Xarelto 5. GI prophylaxis - senna; milk of magnesia 6. PT/OT - weightbearing as tolerated with walker and assistance as needed 7. Encourage incentive spirometer use 8. Discharge planning - plan for discharge home tomorrow with health services Time with Patient: Less than 30
[2022-12-12] MEDS: EZETIMIBE 10 MG TAB PO SCH (09:37)
[2022-12-12] MEDS: LINAGLIPTIN 5 MG TABLET PO SCH (09:37)
[2022-12-12] MEDS: RIVAROXABAN 10 MG TAB PO SCH (09:37)
[2022-12-12] MEDS: VITAMIN E (DL,TOCOPHERYL ACET) 400 UNIT (180 MG) CAP PO SCH (09:37)
[2022-12-12] MEDS: LEVOTHYROXINE 50 MCG TAB PO SCH (09:37)
[2022-12-12] MEDS: lisinopriL 10 MG TAB PO SCH (09:37)
[2022-12-12] MEDS: MAGNESIUM OXIDE 400 MG TAB PO SCH ×2 (09:38→21:04)
[2022-12-12] MEDS: amLODIPine 5 MG TAB PO SCH (09:38)
[2022-12-12] MEDS: CYANOCOBALAMIN 500 MCG TAB PO SCH (09:38)
[2022-12-12] MEDS: PANTOPRAZOLE 40 MG TABLET PO SCH (09:38)
[2022-12-12] MEDS: metFORMIN 500 MG TAB PO SCH ×4 (09:38→21:04)
[2022-12-12] MEDS: GABAPENTIN 300 MG CAP PO SCH ×2 (09:38→21:05)
[2022-12-12] MEDS ORDERED: INSULIN ASPART (NovoLOG) 100 UNIT/ML VIAL SQ ONE (09:56)
[2022-12-12 11:22] LABS: Glucose,Whole Blood 231 mg/dL (70-110)
[2022-12-12 12:13] LABS: HCT 32.5 % (37.2-46.3); HGB 10.7 g/dL (12.0-15.0); MCH 29.7 pg (27.0-32.0); MCHC 32.9 g/dL (32.0-37.0); MCV 90.3 fL (80.0-97.0); Mean Platelet Volume 10.9 fL (9.5-12.2); NRBC Per 100 WBC 0 /100 WBCS (0.0-0.0); Platelet Count 315 X 10*3/uL (140-440); RDW 14.4 % (11.5-14.5); WBC 11.55 X 10*3/uL (4.50-10.00)
[2022-12-12 13:01] LABS: Basophils # (A) 0.04 X 10*3/uL (0.00-0.10); Basophils % (A) 0.3 %; Eosinophils # (A) 0.02 X 10*3/uL (0.04-0.35); Eosinophils % (A) 0.2 %; Immature Grans, Automated 0.3 %; Lymphocytes # (A) 1.86 X 10*3/uL (0.90-5.00); Lymphocytes % (A) 16.1 %; Monocytes # (A) 1.51 X 10*3/uL (0.20-1.00); Monocytes % (A) 13.1 %; Neutrophils # (A) 8.08 X 10*3/uL (1.80-7.70); RBC Morphology NORMAL
[2022-12-12] MEDS ORDERED: CINACALCET 30 MG TAB PO SCH (15:53)
[2022-12-12 16:10] LABS: Glucose,Whole Blood 173 mg/dL (70-110)
[2022-12-12 20:59] LABS: Glucose,Whole Blood 205 mg/dL (70-110)
[2022-12-12] MEDS ORDERED: CYCLOBENZAPRINE 10 MG TAB PO SCH (21:00)
[2022-12-12] MEDS: SENNOSIDES-DOCUSATE SODIUM 1 EACH TAB PO SCH (21:05)
--- NOTE | 2022-12-12 21:14 | PN ---
PROGRESS NOTE DATE OF SERVICE: 12/12/2022 SUBJECTIVE: This is a 77-year-old woman who was admitted after right total knee arthroplasty, complaining of severe pain. No chest pain. No palpitations. No fever. OBJECTIVE: VITAL SIGNS: Pulse 72, blood pressure 140/70, respirations 19. CHEST: Clear to auscultation. CARDIOVASCULAR: S1, S2 muffled. ABDOMEN: Soft. LABORATORY DATA: Reviewed. Sugars elevated. ASSESSMENT: 1. Status post right total knee arthroplasty. 2. Diabetes mellitus, type 2. 3. Severe knee pain. 4. Hypertension. 5. Hyperlipidemia. 6. Multiple medical issues. RECOMMENDATIONS AND DISCUSSION: Recommend to continue current management. Continue symptomatic treatment with some extra insulin and monitor blood sugars closely. The patient is also supposed to get Levemir 10 units subcu daily. We will monitor closely. Also recommend repeat labs in the morning and closely monitor. Pain management. DVT prophylaxis. Further recommendations per Orthopedic Surgery. MMODL / IJN: [id number] /
[2022-12-12] MEDS ORDERED: MELATONIN 5 MG TABLET PO PRN (22:34)
[2022-12-13] MEDS: HYDROcodone/APAP 7.5-325MG 1 EACH TAB PO PRN ×3 (03:03→17:01)
[2022-12-13 05:53] LABS: Glucose,Whole Blood 116 mg/dL (70-110)
[2022-12-13] MEDS: LACTATED RINGERS 1,000 ML IV SCH (06:02)
[2022-12-13] MEDS: INSULIN ASPART (NovoLOG) 100 UNIT/ML VIAL SQ SCH ×3 (06:02→17:27)
[2022-12-13] MEDS: GLIMEPIRIDE 4 MG TAB PO SCH (06:43)
[2022-12-13] MEDS: PANTOPRAZOLE 40 MG TABLET PO SCH (08:21)
[2022-12-13] MEDS: amLODIPine 5 MG TAB PO SCH (08:21)
[2022-12-13] MEDS: LEVOTHYROXINE 50 MCG TAB PO SCH (08:22)
[2022-12-13] MEDS: RIVAROXABAN 10 MG TAB PO SCH (08:22)
[2022-12-13] MEDS: VITAMIN E (DL,TOCOPHERYL ACET) 400 UNIT (180 MG) CAP PO SCH (08:22)
[2022-12-13] MEDS: LINAGLIPTIN 5 MG TABLET PO SCH (08:22)
[2022-12-13] MEDS: GABAPENTIN 300 MG CAP PO SCH (08:22)
[2022-12-13] MEDS: MAGNESIUM OXIDE 400 MG TAB PO SCH (08:22)
[2022-12-13] MEDS: EZETIMIBE 10 MG TAB PO SCH (08:22)
[2022-12-13] MEDS: lisinopriL 10 MG TAB PO SCH (08:22)
[2022-12-13] MEDS: CYANOCOBALAMIN 500 MCG TAB PO SCH (08:22)
[2022-12-13] MEDS: metFORMIN 500 MG TAB PO SCH ×3 (08:22→16:49)
[2022-12-13] MEDS ORDERED: INSULIN DETEMIR (LEVEMIR) 100 UNIT/ML SYR SQ SCH (09:00)
[2022-12-13] MEDS: HYDROmorphone 0.5 MG/0.5 ML SYRINGE IVP PRN (09:20)
--- NOTE | 2022-12-13 09:39 | P.PN ---
Subjective Progress Note Date: 12/13/22 Principal diagnosis: status post right total knee arthroplasty Patient was evaluated today at bedside, she is resting in her hospital bed. She just finished working with physical therapy, she was able to ambulate and utilize stairs with minimal difficulty. Patient notes that the pain is worse after weightbearing. Continue to utilize ice and elevating. Currently has no headaches, lightheadedness, chest pain or shortness of breath. Patient states that she will have family around at home to help when she is discharged. Objective - Vital Signs Vital signs: Vital Signs Temp 98.3 F 12/13/22 07:39 Pulse 90 12/13/22 07:39 Resp 18 12/13/22 07:39 BP 151/77 12/13/22 07:39 Pulse Ox 97 12/13/22 09:34 FiO2 Intake & Output 12/12/22 12/13/22 12/13/22 18:59 06:59 18:59 Intake Total 476 Balance 476 Intake: Oral 476 Other: Voiding Method Toilet Toilet Bedside Commode # Voids 3 2 1 # Bowel Movements 1 - Exam Right lower extremity: Incision is clean, dry, and intact. The exofin fusion tape is in good condition. There is minimal soft tissue swelling and ecchymosis surrounding the medial and lateral aspects of the incision. Calf is soft, no tenderness with palpation. Plantar flexion, dorsiflexion, EHL, FHL are intact. Sensory exam to light touch throughout the extremity is intact, dorsal pedis pulses 2+. - Labs CBC & Chem 7: 12/12/22 06:00 Labs: Abnormal Lab Results - Last 24 Hours (Table) 12/12/22 12/12/22 12/12/22 Range/Units 06:00 06:00 11:20 WBC 11.55 H (4.50-10.00) X 10*3/uL RBC 3.60 L (4.10-5.20) X 10*6/uL Hgb 10.7 L (12.0-15.0) g/dL Hct 32.5 L (37.2-46.3) % Neutrophils # 8.08 H (1.80-7.70) X 10*3/uL Monocytes # 1.51 H (0.20-1.00) X 10*3/uL Eosinophils # 0.02 L (0.04-0.35) X 10*3/uL POC Glucose (mg/dL) 231 H (70-110) mg/dL Hemoglobin A1c 7.0 H (0.0-6.0) % 12/12/22 12/12/22 12/13/22 Range/Units 16:09 20:57 05:51 WBC (4.50-10.00) X 10*3/uL RBC (4.10-5.20) X 10*6/uL Hgb (12.0-15.0) g/dL Hct (37.2-46.3) % Neutrophils # (1.80-7.70) X 10*3/uL Monocytes # (0.20-1.00) X 10*3/uL Eosinophils # (0.04-0.35) X 10*3/uL POC Glucose (mg/dL) 173 H 205 H 116 H (70-110) mg/dL Hemoglobin A1c (0.0-6.0) % Assessment and Plan Assessment: Postoperative day #2 status post right total knee arthroplasty Plan: Pain control, plan for discharge home on [place]. Patient has gabapentin already at home and she will remain taking DVT prophylaxis, Eliquis 2.5mg bid for 14 days Home PT/OT of discharge Wound care instructions were discussed today at bedside, this including icing and elevating along with showering instructions Remove On-Q pain catheter prior to discharge today Medical recommendations Discharge planning: Patient stable for discharge home today Time with Patient: Less than 30
--- NOTE | 2022-12-13 09:52 | P.DS ---
Providers Date of admission: 12/11/2022 Expected date of discharge: 12/13/22 Attending physician: Aries Flor Consults: 12/11/22 11:57 Consult Physician Routine Consulting Provider: Lele Porter Consult Reason/Comments: Medical Management s/p right total knee arthroplasty Do you want consulting provider notified?: Yes Primary care physician: Bulmaro Rose [facility] Course: Date of admission: 12/11/2022 Date of discharge: 12/13/2022 Admission diagnosis: Status post right total knee arthroplasty Discharge diagnosis: Same Attending physician: Dr. Flor Surgical procedures: Right total knee arthroplasty Brief history: Patient is a 77-year-old female with a history of progressive primary right knee osteoarthritis. At this point patient has failed conservative treatment measures and has opted to proceed with a elective right total knee arthroplasty. Hospital course: Details of patient's surgery can be found in operative report. Patient tolerated the procedure well and was subsequently transported to orthopedic floor. Patient's orthopeidc and medical care was provided daily. Patient had daily laboratory tests performed for evaluation of overall blood counts. Patient had daily physical therapy to include strengthening range of motion as well as education with walker ambulation. Patient was treated with Xarelto for their postoperative DVT prophylaxis during their inpatient stay. Patient was noted to have a relatively uneventful postoperative course. Patient reported satisfactory pain control with oral pain medications by postoperative day 1. Patient showed satisfactory progress with physical therapy. Patient moved steadily through the program and had no difficulty meeting the goals by postoperative day 2. Given patient's otherwise satisfactory course and having met physical therapy goals, plan is to discharge patient home on postoperative day 2. Discharge condition/disposition: Patient will be discharged home in stable condition. Discharge medications: Instructions are given on resumption of patient's normal daily medications per primary care recommendation, in addition patient will be prescribed Eliquis 2.5mg, Senna-S, Flexeril 10mg, [place] 7.5mg/325mg . Discharge instructions: 1. Wound care and infection precautions, keep incision dry and covered while showering, no lotions, creams, moisturizers. No soaking, tubs, pools, hottubs. Do not scrub over the incision. 2. Weight-bear as tolerated with walker / cane until follow-up. 3. Ice and elevate when necessary. Do not exceed 20 minutes per hour with ice pack. 4. Utilize compression sleeve until seen at first follow up appointment. 5. Visiting nursing care. 6. Home physical therapy including home CPM. 7. Pain meds and anticoagulants per prescription. 8. Pain medication has potential to cause constipation. Increase oral fluid and fiber intake. Contact primary care provider if you have not had a bowel movement within 48 hours after discharge 9. No anti-inflammatory medication until discussed at first post operative visit, this including Motrin, Aleve, Mobic, Diclofenac. 10. Follow up in office at 2 weeks postop with Andrew Olguin PA-C/Matthew Horton 11. Follow up with your primary care doctor 7-10 days after discharge. 12. Contact [facility] with any questions, . Procedures: Right total knee arthroplasty Patient Condition at Discharge: Good Plan - Discharge Summary Discharge Rx Participant: No New Discharge Prescriptions: New Cyclobenzaprine [Flexeril] 10 mg PO HS PRN #21 tab PRN Reason: Muscle Spasm HYDROcodone/APAP 7.5-325MG [[place] 7.5] 1 each PO Q6HR PRN #28 tab PRN Reason: Pain No Action Vits A,C,E/Lutein/Minerals [Ocuvite with Lutein Tablet] 1 tab PO QAM Vitamin E (Dl,Tocopheryl Acet) [Vitamin E (400 Iu = 180 mg)] 400 unit PO QAM Cyanocobalamin (Vitamin B-12) [Vitamin B-12] 1,000 mcg PO QAM Glimepiride [Amaryl] 8 mg PO AC-BRKFST amLODIPine [Norvasc] 5 mg PO QAM Esomeprazole Magnesium 40 mg PO QAM metFORMIN HCL [Glucophage] 1,000 mg PO QID Ezetimibe [Zetia] 10 mg PO QAM Insulin Glargine [Lantus Vial] 10 units SQ QAM Aspirin [Adult Low Dose Aspirin EC] 81 mg PO QAM Neuriva 1 cap PO QAM Cinacalcet [Sensipar] 30 mg PO SUWE Fish Oil/Dha/Epa [Fish Oil 1,200 mg Fish Oil] 1 cap PO QAM Glucosamine/Chondr Browne A Sod [Osteo Bi-Flex Caplet] 1 tab PO BID Insulin Lispro [humaLOG Kwikpen] See Protocol SQ DIRECTED Omeprazole 40 mg PO QAM Gabapentin 300 mg PO BID Ferrous Sulfate [Iron (65 MG Elemental)] 325 mg PO BID Levothyroxine Sodium [Synthroid] 50 mcg PO QAM Magnesium Oxide 400 mg PO BID sitaGLIPtin [Januvia] 50 mg PO QAM lisinopriL [Zestril] 10 mg PO QAM traMADol HCL 50 mg PO BID Discharge Medication List Cyanocobalamin (Vitamin B-12) [Vitamin B-12] 1,000 mcg PO QAM 12/17/17 [History] Esomeprazole Magnesium 40 mg PO QAM 12/17/17 [History] Ezetimibe [Zetia] 10 mg PO QAM 12/17/17 [History] Glimepiride [Amaryl] 8 mg PO AC-BRKFST 12/17/17 [History] Vitamin E (Dl,Tocopheryl Acet) [Vitamin E (400 Iu = 180 mg)] 400 unit PO QAM 12/17/17 [History] Vits A,C,E/Lutein/Minerals [Ocuvite with Lutein Tablet] 1 tab PO QAM 12/17/17 [History] amLODIPine [Norvasc] 5 mg PO QAM 12/17/17 [History] metFORMIN HCL [Glucophage] 1,000 mg PO QID 12/17/17 [History] Aspirin [Adult Low Dose Aspirin EC] 81 mg PO QAM 01/06/21 [History] Ferrous Sulfate [Iron (65 MG Elemental)] 325 mg PO BID 01/06/21 [History] Insulin Glargine [Lantus Vial] 10 units SQ QAM 01/06/21 [History] Cinacalcet [Sensipar] 30 mg PO SUWE 07/06/22 [History] Fish Oil/Dha/Epa [Fish Oil 1,200 mg Fish Oil] 1 cap PO QAM 07/06/22 [History] Glucosamine/Chondr Browne A Sod [Osteo Bi-Flex Caplet] 1 tab PO BID 07/06/22 [History] Insulin Lispro [humaLOG Kwikpen] See Protocol SQ DIRECTED 07/06/22 [History] Levothyroxine Sodium [Synthroid] 50 mcg PO QAM 07/06/22 [History] Magnesium Oxide 400 mg PO BID 07/06/22 [History] Neuriva 1 cap PO QAM 07/06/22 [History] sitaGLIPtin [Januvia] 50 mg PO QAM 07/06/22 [History] Gabapentin 300 mg PO BID 12/10/22 [History] Omeprazole 40 mg PO QAM 12/10/22 [History] lisinopriL [Zestril] 10 mg PO QAM 12/10/22 [History] traMADol HCL 50 mg PO BID 12/10/22 [History] Cyclobenzaprine [Flexeril] 10 mg PO HS PRN #21 tab 12/13/22 [Rx] HYDROcodone/APAP 7.5-325MG [[place] 7.5] 1 each PO Q6HR PRN #28 tab 12/13/22 [Rx] Follow up Appointment(s)/Referral(s): Matthew Leroy PAC [PHYSICIAN RESIST COATER DEVELOPER] - 2 Weeks [facility],Equipment [NON-STAFF] - 1 Week [facility], [NON-STAFF] - 1 Week ([facility] will call you to arrange a visit) Patient Instructions/Handouts: Knee Replacement (DC) Activity/Diet/Wound Care/Special Instructions: Orthopedic Discharge Instructions: 1. Wound care and infection precautions, keep incision dry and covered while showering, no lotions, creams, moisturizers. No soaking, pools, hot tubs. Do not scrub over incision. 2. Weight-bear as tolerated with walker / cane until follow-up. 3. Ice and elevate when necessary. Do not exceed 20 minutes per hour with ice pack. 4. Utilize compression sleeve until seen at first follow up appointment. 5. Pain meds and anticoagulants per prescription. 6. Pain medication has potential to cause constipation. Increase oral fluid and fiber intake. Contact primary care provider if you have not had a bowel movement within 48 hours after discharge. 7. No anti-inflammatory medication until discussed at first post operative visit, this including Motrin, Aleve, Mobic, Diclofenac. 8. Follow up in office at 2 weeks postop with Andrew Olguin PA-C / Matthew Leroy PA-C 9. Follow up with your primary care doctor 7-10 days after discharge. 10. Contact [facility] with any questions, . Keep incision clean, dry, intact. While showering, cover fusion tape with Saran wrap. Keep fusion tape on until follow-up appointment in office in 2 weeks Discharge Disposition: HOME WITH HOME HEALTH SERVICES
[2022-12-13 10:03] LABS: Basophils # (A) 0.04 X 10*3/uL (0.00-0.10); Basophils % (A) 0.3 %; Eosinophils # (A) 0.09 X 10*3/uL (0.04-0.35); Eosinophils % (A) 0.8 %; HCT 32.3 % (37.2-46.3); HGB 10.4 g/dL (12.0-15.0); Immature Grans, Automated 0.5 %; Lymphocytes # (A) 1.97 X 10*3/uL (0.90-5.00); Lymphocytes % (A) 16.8 %; MCH 29.2 pg (27.0-32.0); MCHC 32.2 g/dL (32.0-37.0); MCV 90.7 fL (80.0-97.0); Mean Platelet Volume 11.1 fL (9.5-12.2); Monocytes # (A) 1.84 X 10*3/uL (0.20-1.00); Monocytes % (A) 15.7 %; NRBC Per 100 WBC 0 /100 WBCS (0.0-0.0); Neutrophils # (A) 7.73 X 10*3/uL (1.80-7.70); Neutrophils % (A) 65.9 %; Platelet Count 316 X 10*3/uL (140-440); RBC 3.56 X 10*6/uL (4.10-5.20); RDW 14.6 % (11.5-14.5); WBC 11.73 X 10*3/uL (4.50-10.00)
[2022-12-13 10:35] LABS: African American GFR (CKD) 62.5 (60.0-200.0); Anion Gap 13.2 mmol/L (10.00-18.00); Calcium 9.5 mg/dL (8.7-10.3); Carbon Dioxide 20.8 mmol/L (20.0-27.5); Non-African American GFR(CKD) 53.9 (60.0-200.0); Potassium 4.9 mmol/L (3.5-5.5)
[2022-12-13 11:17] LABS: Glucose,Whole Blood 201 mg/dL (70-110)
--- NOTE | 2022-12-13 13:27 | PN ---
PROGRESS NOTE DATE OF SERVICE: 12/13/2022 SUBJECTIVE: This is a 77-year-old woman who was admitted after right total knee arthroplasty, is improving significantly. No chest pain, no palpitations, no fever. OBJECTIVE: VITAL SIGNS: Pulse is 90, blood pressure 151/76, and respirations 18. CHEST: Clear to auscultation. CARDIOVASCULAR: S1, S2. ABDOMEN: Soft. LEGS: Status post surgery. LABORATORY DATA: Reviewed. ASSESSMENT: 1. Status post right total knee arthroplasty. 2. Diabetes mellitus type 2. 3. Severe knee pain. 4. Hypertension. 5. Hyperlipidemia. 6. Multiple medical issues. RECOMMENDATIONS AND DISCUSSION: Recommended to continue current management, continue symptomatic treatment, blood sugars improved. Recommended to resume the home medication, monitor closely, and follow with primary physician in the outpatient setting. DVT prophylaxis. Rest of the recommendations per Orthopedic surgery. Further recommendations to follow. MMODL / IJN: [id number] /
[2022-12-13 16:10] VITALS: BP 135/70; PULSE 85; RESP 17; TEMP 98
[2022-12-13 16:38] LABS: Glucose,Whole Blood 195 mg/dL (70-110)
== END 2022-12-13 18:03 | disposition home health service (06) ==
LOC: OR 08:28 → 4SSUR 12:10 → OR 12-13 18:03
PROVIDERS: ATTEND Orthopaedic Surgery
DX: M17.11 Unilateral primary osteoarthritis, right knee (principal); M25.761 Osteophyte, right knee; E11.9 Type 2 diabetes mellitus without complications; E78.5 Hyperlipidemia, unspecified; I10 Essential (primary) hypertension; Z90.49 Acquired absence of other specified parts of digestive tract; Z90.710 Acquired absence of both cervix and uterus; Z96.641 Presence of right artificial hip joint; Z79.899 Other long term (current) drug therapy; Z79.84 Long term (current) use of oral hypoglycemic drugs
CPT/HCPCS: 94760 ×2; 97116; 97162; 64999; 64448; 80048; 85025 ×2; 85610; 88300; 83036; 73560; 27447; C1713 ×2; C1776; C1751; J2250; J1100; J0690 ×3; J2405; J2795; J1170 ×3

== ENCOUNTER → 2023-04-03 | Outpatient (CLI) | payer MEDICARE, BC ==
--- NOTE | 2023-04-04 08:55 | MM ---
Reason for Exam: Screening (asymptomatic). Last mammogram was performed 3 year(s) and 5 month(s) ago. Patient History: Menarche at age 12. Patient has no children. Left ovary removed at age 21. Right ovary removed at age 21. Hysterectomy at age 21. Postmenopausal. Estrogen for 10 years from age 24 until age 34. 1984, Benign Excisional Biopsy on the left side. Maternal cousin had breast cancer, age 86. Risk Values: Lizzie 5 year model risk: 2.3%. NCI Lifetime model risk: 4.0%. Prior Study Comparison: 06/18/2016 Screening Mammogram, [place]. 10/02/2018 Bilateral Screening Mammogram, [facility]. 10/08/2019 Bilateral Screening Mammogram, [facility]. Tissue Density: The breast tissue is heterogeneously dense. This may lower the sensitivity of mammography. Findings: Analyzed By CAD. There is no suspicious group of microcalcifications or new suspicious mass in either breast. Benign-appearing calcifications bilaterally. Overall Assessment: Benign, BI-RAD 2 Management: Screening Mammogram of both breasts in [address] [facility] will attempt to contact patient to return for supplemental views and ultrasound if indicated. Patient should continue monthly self-breast exams. A clinical breast exam by your physician is recommended on an annual basis. This exam should not preclude additional follow-up of suspicious palpable abnormalities. Note on Lizzie scores and lifetime risk: 1. A Lizzie score greater than 3% is considered moderate risk. If this is the case, consider specialist referral to assess eligibility for a risk reducing agent. 2. If overall lifetime risk for the development of breast cancer is 20% or higher, the patient may qualify for future screening with alternating mammogram and breast MRI. Electronically signed and approved by: David He DO
== END | disposition home or self-care (01) ==
LOC: RADMAMWWP 09:56
PROVIDERS: ATTEND Pediatrics
DX: Z12.31 Encounter for screening mammogram for malignant neoplasm of breast (principal); Z78.0 Asymptomatic menopausal state; Z80.3 Family history of malignant neoplasm of breast
CPT/HCPCS: 77063; 77067

== ENCOUNTER → 2023-09-20 | Outpatient (CLI) | payer MEDICARE, BC | END | disposition home or self-care (01) | LOC: LABWHC1 11:35 | PROVIDERS: ATTEND Otolaryngology | DX: J30.89 Other allergic rhinitis (principal) | CPT/HCPCS: 36415; 86001 ==

== ENCOUNTER → 2023-10-23 | Outpatient (CLI) | payer MEDICARE, BC ==
[2023-10-23 16:09] LABS: Appearance,Urine Clear (Clear); Bilirubin,Urine Negative (Negative); Blood,Urine Negative (Negative); Color,Urine Yellow (Yellow); Ketones,Urine Negative (Negative); Nitrite,Urine Negative (Negative); Specific Gravity,Urine 1.019 (1.001-1.030); Urobilinogen,Urine 0.2 E.U./DL
[2023-10-23 17:04] LABS: HCT 42.4 % (37.2-46.3); HGB 13.6 g/dL (12.0-15.0); MCH 29.1 pg (27.0-32.0); MCHC 32.1 g/dL (32.0-37.0); MCV 90.6 FL (80.0-97.0); Mean Platelet Volume 10.6 FL (9.5-12.2); NRBC Per 100 WBC 0 X 10*3/uL (0.00-0.01); Platelet Count 366 X 10*3/uL (140-440); RBC 4.68 X 10*6/uL (4.10-5.20); WBC 9.32 X 10*3/uL (4.50-10.00)
[2023-10-23 17:40] LABS: % Iron Saturation 28.52 (12.00-45.00); ALT 26 U/L (8-44); AST 26 U/L (13-35); Albumin 4.8 g/dL (3.8-4.9); Albumin/Globulin Ratio 1.85 Ratio (1.60-3.17); Alkaline Phosphatase 93 U/L (41-126); BUN/Creat Ratio 17.08 Ratio (12.00-20.00); Blood Urea Nitrogen 22.2 mg/dL (9.0-27.0); Calcium 10.8 mg/dL (8.7-10.3); Carbon Dioxide 19.4 mmol/L (21.6-31.8); Chloride 102 mmol/L (96-109); Globulin 2.6 g/dL (1.6-3.3); Glucose 93 mg/dL (70-110); Iron 85 UG/DL (50-170); Magnesium 1.8 mg/dL (1.5-2.4); Potassium 4.9 mmol/L (3.5-5.5); Sodium 141 mmol/L (135-145); Total Bilirubin 0.2 mg/dL (0.3-1.2); Total Iron Binding Capacity 298 UG/DL (228-460); Total Protein 7.4 g/dL (6.2-8.2); Uric Acid 6.5 mg/dL (2.9-7.7)
[2023-10-23 18:59] LABS: Urine Creatinine 75.7 mg/dL (28.0-217.0)
== END | disposition home or self-care (01) ==
LOC: LABWHC1 10:08
PROVIDERS: ATTEND Internal Medicine Nephrology
DX: E55.9 Vitamin D deficiency, unspecified (principal); N39.0 Urinary tract infection, site not specified; N25.81 Secondary hyperparathyroidism of renal origin; M10.9 Gout, unspecified; N18.31 Chronic kidney disease, stage 3a; D63.1 Anemia in chronic kidney disease; R80.9 Proteinuria, unspecified
CPT/HCPCS: 36415; 80053; 81003; 82043; 82306; 82570; 82728; 83540; 83550; 83735; 83970; 84100; 84550; 85027

== ENCOUNTER → 2024-03-27 | Outpatient (CLI) | payer MEDICARE, BC ==
--- NOTE | 2024-04-13 10:21 | MM ---
Reason for Exam: Screening (asymptomatic). Last screening mammogram was performed 12 month(s) ago. Patient History: Menarche at age 12. Patient has no children. Left ovary removed at age 21. Right ovary removed at age 21. Hysterectomy at age 21. Postmenopausal. Estrogen for 10 years from age 24 until age 34. 1984, Benign Excisional Biopsy on the left side. Maternal cousin had breast cancer, age 86. Risk Values: Lizzie 5 year model risk: 2.2%. NCI Lifetime model risk: 3.7%. Prior Study Comparison: 06/18/2016 Screening Mammogram, [place]. 10/02/2018 Bilateral Screening Mammogram, [facility]. 10/08/2019 Bilateral Screening Mammogram, [facility]. 04/03/2023 Bilateral MG 3D screening mammo w/cad, [facility]. Tissue Density: There are scattered areas of fibroglandular density. Findings: Analyzed By CAD. There is no suspicious group of microcalcifications or new suspicious mass in either breast. Overall Assessment: Benign, BI-RAD 2 Management: Screening Mammogram of both breasts in 1 year. . Patient should continue monthly self-breast exams. A clinical breast exam by your physician is recommended on an annual basis. This exam should not preclude additional follow-up of suspicious palpable abnormalities. Note on Lizzie scores and lifetime risk: 1. A Lizzie score greater than 3% is considered moderate risk. If this is the case, consider specialist referral to assess eligibility for a risk reducing agent. 2. If overall lifetime risk for the development of breast cancer is 20% or higher, the patient may qualify for future screening with alternating mammogram and breast MRI. Electronically signed and approved by: Oc Abbasi M.D. Radiologis
== END | disposition home or self-care (01) ==
LOC: RADMAMWWP 13:30
PROVIDERS: ATTEND Pediatrics
DX: Z80.3 Family history of malignant neoplasm of breast (principal); R92.323 Mammographic fibroglandular density, bilateral breasts
CPT/HCPCS: 77063; 77067